=== PATIENT | female | born 1960 | race Caucasian/White ===

== ENCOUNTER → 2020-04-18 11:06 | Outpatient (BNVA) | payer OTHER, SELFPAY | PROVIDERS: PCP Internal Medicine; Referring Provider Internal Medicine; Visit Provider Internal Medicine Gastroenterology | DX: K21.9 Gastro-esophageal reflux disease without esophagitis (principal); K58.1 Irritable bowel syndrome with constipation; K86.3 Pseudocyst of pancreas | CPT/HCPCS: 99212 ==

== ENCOUNTER 2020-04-21 10:34 | Outpatient (REF) | payer OTHER, SELFPAY ==
[2020-04-21 12:33] LABS: MANUAL DIFF FLAG NO
[2020-04-21 12:49] LABS: Basophils Absolute Auto 0.1 X10*3/uL (0.0-0.2); Basophils Percent Auto 0.7 % (0-2); Eosinophils Absolute Auto 0.2 X10*3/uL (0.0-0.4); Eosinophils Percent Auto 2.7 % (0-4); Hematocrit 41.7 % (37-47); Imm Gran Abs Auto 0.02 X10*3/uL (0.00-0.03); Imm Gran Pct Auto 0.3 % (0.0-0.4); Lymphocytes Absolute Auto 2.7 X10*3/uL (1.2-4.9); Lymphocytes Percent Auto 36.8 % (20-40); Mean Corpuscular HGB Conc 33.6 g/dl (31.0-35.0); Mean Corpuscular Volume 95.2 fL (80-98); Mean Platelet Volume 10.4 fL (9.4-12.3); Monocytes Absolute Auto 0.4 X10*3/uL (0.1-1.2); Neutrophils Absolute Auto 3.9 X10*3/uL (2.0-8.3); Neutrophils Percent Auto 53.5 % (45-73); Platelet Count 368 X10*3/uL (160-400); Red Blood Count 4.38 X10*6/uL (4.20-5.50); Red Cell Distribution Width 14.5 % (11.0-16.0); White Blood Count 7.3 X10*3/uL (4.8-10.8)
[2020-04-21 13:27] LABS: Alanine Aminotransferase 17 U/L (0-31); Albumin Level 4.2 g/dL (3.5-5.0); Alkaline Phosphatase 54 U/L (39-117); Anion Gap 13 (12-20); Aspartate Amino Transferase 17 U/L (5-31); Bilirubin Total 0.4 mg/dL (0.0-1.0); Blood Urea Nitrogen 11 mg/dL (9-16); Calcium 9.3 mg/dL (8.4-10.2); Carbon Dioxide 28 mmol/L (22-29); Chloride 103 mmol/L (96-108); Estimated Glomerular Filt Rate > 60; Gamma Glutamyl Transpeptidase 25 U/L (7-33); Glucose Random 101 mg/dL (60-115); Potassium 4.5 mmol/l (3.3-5.1); Sodium 139 mmol/L (135-145); Total Protein 7.6 g/dL (6.5-8.0)
[2020-04-21 13:48] LABS: TSH reflex Free T4 1.31 mIU/mL (0.32-4.0); Vitamin D 25-OH Total 20.7 ng/mL (>30)
== END 2020-04-21 10:35 | disposition home or self-care (01) ==
LOC: HO.LAB 10:34
PROVIDERS: PCP Internal Medicine; Visit Provider Internal Medicine Gastroenterology
DX: K58.9 Irritable bowel syndrome, unspecified (principal)
CPT/HCPCS: 36415; 80053; 82306; 82977; 84443; 85025

== ENCOUNTER 2020-06-06 | Outpatient (REF) | payer OTHER, SELFPAY ==
[2020-06-10 12:07] LABS: FIT Int Ctl YES; FIT1 NEGATIVE (NEGATIVE); FIT2 NEGATIVE (NEGATIVE)
== END 2020-06-06 00:01 | disposition home or self-care (01) ==
LOC: HO.LNP
PROVIDERS: Visit Provider Internal Medicine Gastroenterology
DX: K58.9 Irritable bowel syndrome, unspecified (principal)
CPT/HCPCS: 82274

== ENCOUNTER → 2020-12-29 14:15 | Outpatient (BNVA) | payer OTHER, SELFPAY | PROVIDERS: PCP Internal Medicine; Visit Provider Nurse Practitioner | DX: K21.9 Gastro-esophageal reflux disease without esophagitis (principal); K58.9 Irritable bowel syndrome, unspecified | CPT/HCPCS: Q3014 ==

== ENCOUNTER 2021-04-05 15:04 | Outpatient (REF) | payer OTHER, SELFPAY ==
--- NOTE | ~2021-04-05 | MM_ITS ---
EXAMINATION: MM SCREENING DIGITAL BREAST TOMOSYNTHESIS, BILATERAL CLINICAL INFORMATION: Screening. Asymptomatic. The lifetime risk of breast cancer based on the Tyrer-Cuzick Model is 4%. COMPARISON: Mammography: 06/01/2013 TECHNIQUE: Digital breast tomosynthesis is performed in both the craniocaudal and mediolateral oblique views along with computer-aided detection (CAD). Synthesized 2D images are generated from the tomosynthesis. FINDINGS: There are scattered areas of fibroglandular density (ACR BI-RADS breast composition Category b). There are no significant masses, abnormal calcifications, or other abnormalities. Parenchymal pattern is similar to prior study. The axilla and skin contours are unremarkable. MM/MM tomosynthesis screening BI IMPRESSION: No mammographic evidence of malignancy. ASSESSMENT: BI-RADS 1: Negative RECOMMENDATION: Routine annual mammography screening. This patient's information was entered into a reminder system with a target due date for their next mammogram.
== END 2021-04-05 15:05 | disposition home or self-care (01) ==
LOC: HO.MAMMO 15:04
PROVIDERS: Visit Provider Internal Medicine
DX: Z12.31 Encounter for screening mammogram for malignant neoplasm of breast (principal)
CPT/HCPCS: 77063; 77067

== ENCOUNTER 2021-04-10 12:57 | Outpatient (REF) | payer OTHER, SELFPAY ==
[2021-04-10 15:23] LABS: Syphilis Screen Nonreactive (Nonreactive)
[2021-04-11 01:29] LABS: CT PCR NOT DETECTED (Not Detect.); NG PCR NOT DETECTED (Not Detect.)
[2021-04-11 12:08] LABS: BV Int Neg Control Negative (Negative); BV Int Pos Control Positive (Positive)
[2021-04-12 08:44] LABS: HBc Num1 0.14 S/CO (0.00-0.79); Hepatitis B Core Antibody Nonreactive (Nonreactive); ~HepC Num1 12.92 S/CO (0.00-0.79); ~Hepatitis C Antibody Reactive (Nonreactive)
[2021-04-12 08:48] LABS: HIV AB/AG Nonreactive (Nonreactive); HIV Num 1 0.06 S/CO (0.00-0.99)
== END 2021-04-10 12:58 | disposition home or self-care (01) ==
LOC: HO.LAB 12:57
PROVIDERS: PCP Internal Medicine; Visit Provider Advanced Practice Midwife
DX: Z01.411 Encounter for gynecological examination (general) (routine) with abnormal findings (principal); R10.2 Pelvic and perineal pain; R21 Rash and other nonspecific skin eruption; N95.2 Postmenopausal atrophic vaginitis; Z20.2 Contact with and (suspected) exposure to infections with a predominantly sexual mode of transmission
CPT/HCPCS: 36415; 86704; 86780; 86803; 87389; 87480; 87491; 87510; 87591; 87660

== ENCOUNTER 2021-04-18 14:59 | Outpatient (REF) | payer OTHER, SELFPAY ==
--- NOTE | ~2021-04-18 | US_ITS ---
EXAMINATION: US PELVIS US TRANSVAGINAL CLINICAL INFORMATION: Pelvic pain. COMPARISON: None TECHNIQUE: Ultrasound of the pelvis is performed using both transabdominal and transvaginal transducers along with Doppler. Transvaginal imaging is performed due to inadequate visualization transabdominally. FINDINGS: Uterus: The uterus is anteverted and anteflexed, measures 10.1 x 2.6 x 4.8 cm and includes a fibroid projecting into the right adnexa measuring 5.2 x 3.6 x 3.8 cm (previously 5.3 x 3.4 x 5.7 cm). The double wall endometrial thickness is 0.3 mm. The uterus is smooth in contour and has normal myometrial echogenicity. No visible fibroid. Adnexa: The right ovary was not seen. The left ovary measures 3.5 x 2.7 x 3.4 cm for a volume of 16.8 mL which includes a 2.8 x 2.4 x 2.8 cm benign simple cyst. No free fluid is present. US/US pelvic and transvaginal IMPRESSION: Exophytic 5.2 cm uterine fibroid.
== END 2021-04-18 15:00 | disposition home or self-care (01) ==
LOC: HO.US 14:59
PROVIDERS: PCP Internal Medicine; Visit Provider Advanced Practice Midwife
DX: R10.2 Pelvic and perineal pain (principal); Z71.2 Person consulting for explanation of examination or test findings
CPT/HCPCS: 76830; 76856; Q3014

== ENCOUNTER → 2021-05-03 11:50 | Outpatient (BNVA) | payer OTHER, SELFPAY | PROVIDERS: Visit Provider Advanced Practice Midwife | DX: Z71.2 Person consulting for explanation of examination or test findings (principal); R10.2 Pelvic and perineal pain; D25.9 Leiomyoma of uterus, unspecified; R21 Rash and other nonspecific skin eruption | CPT/HCPCS: Q3014 ==

== ENCOUNTER 2021-06-26 15:06 | Outpatient (REF) | payer OTHER, SELFPAY ==
[2021-07-01 10:02] LABS: HCV Log PCR <1.18 log IU/mL; HepC Viral Load <15 IU/mL
== END 2021-06-26 15:07 | disposition home or self-care (01) ==
LOC: HO.LAB 15:06
PROVIDERS: PCP Internal Medicine; Referring Provider Internal Medicine; Visit Provider Nurse Practitioner
DX: K21.9 Gastro-esophageal reflux disease without esophagitis (principal); K58.9 Irritable bowel syndrome, unspecified; Z86.19 Personal history of other infectious and parasitic diseases
CPT/HCPCS: 36415; 87522; 99212

== ENCOUNTER 2021-07-04 07:15 | Outpatient (REF) | payer OTHER, SELFPAY ==
--- NOTE | ~2021-07-04 | XR_ITS ---
EXAMINATION: XR SHOULDER, LEFT CLINICAL INFORMATION: Pain COMPARISON: Previous x-ray April 2019 TECHNIQUE: Three views of the left shoulder. FINDINGS: Bone alignment is normal. No fracture or dislocation is seen. The glenohumeral joint is normal. There is mild arthritis at the acromioclavicular joint. Soft tissue calcification adjacent to the greater tuberosity appears decreased. XR/XR shoulder LT min 2V IMPRESSION: Mild arthritis at the acromioclavicular joint.
== END 2021-07-04 07:16 | disposition home or self-care (01) ==
LOC: HO.HOSX 07:15
PROVIDERS: Visit Provider Physician Assistant
DX: M75.102 Unspecified rotator cuff tear or rupture of left shoulder, not specified as traumatic (principal)
CPT/HCPCS: 73030; 99212

== ENCOUNTER → 2021-12-26 11:44 | Outpatient (BNVA) | payer OTHER, SELFPAY | PROVIDERS: PCP Internal Medicine; Referring Provider Internal Medicine; Visit Provider Nurse Practitioner | DX: K21.9 Gastro-esophageal reflux disease without esophagitis (principal); K59.00 Constipation, unspecified; Z86.19 Personal history of other infectious and parasitic diseases | CPT/HCPCS: 99212 ==

== ENCOUNTER → 2022-01-24 12:12 | Outpatient (BNVA) | payer OTHER, SELFPAY | PROVIDERS: PCP Internal Medicine; Referring Provider Internal Medicine; Visit Provider Nurse Practitioner | DX: Z01.818 Encounter for other preprocedural examination (principal); K59.00 Constipation, unspecified; K21.9 Gastro-esophageal reflux disease without esophagitis; K58.9 Irritable bowel syndrome, unspecified; M65.30 Trigger finger, unspecified finger; E11.9 Type 2 diabetes mellitus without complications | CPT/HCPCS: 99212 ==

== ENCOUNTER 2022-01-25 07:54 | Outpatient (REF) | payer OTHER, SELFPAY ==
[2022-01-25 08:15] LABS: MANUAL DIFF FLAG NO
[2022-01-25 08:23] LABS: Basophils Absolute Auto 0.1 X10*3/uL (0.0-0.2); Basophils Percent Auto 0.7 % (0-2); Eosinophils Absolute Auto 0.3 X10*3/uL (0.0-0.4); Eosinophils Percent Auto 2.8 % (0-4); Hematocrit 39.3 % (37.0-47.0); Hemoglobin 13.5 g/dl (12.0-16.0); Imm Gran Abs Auto 0.02 X10*3/uL (0.00-0.03); Imm Gran Pct Auto 0.2 % (0.0-0.4); Lymphocytes Absolute Auto 2.9 X10*3/uL (1.2-4.9); Lymphocytes Percent Auto 31.5 % (20-40); Mean Corpuscular HGB Conc 34.4 g/dl (31.0-35.0); Mean Corpuscular Volume 93.1 fL (80.0-98.0); Mean Platelet Volume 9.6 fL (9.4-12.3); Monocytes Absolute Auto 0.6 X10*3/uL (0.1-1.2); Monocytes Percent Auto 6.1 % (2-11); Neutrophils Absolute Auto 5.4 x10*3/uL (2.0-8.3); Neutrophils Percent Auto 58.7 % (45-73); Platelet Count 350 X10*3/uL (160-400); Red Blood Count 4.22 X10*6/uL (4.20-5.50); Red Cell Distribution Width 14.9 % (11.0-16.0); White Blood Count 9.2 X10*3/uL (4.8-10.8)
[2022-01-25 08:33] LABS: Estimated Average Glucose 117 mg/dL; Hemoglobin A1c % 5.7 %
[2022-01-25 08:52] LABS: Alanine Aminotransferase 16 U/L (0-31); Albumin Level 4.1 g/dL (3.5-5.0); Alkaline Phosphatase 52 U/L (39-117); Anion Gap 13 (12-20); Aspartate Amino Transferase 15 U/L (5-31); Bilirubin Total 0.5 mg/dL (0.0-1.0); Blood Urea Nitrogen 13 mg/dL (9-16); Calcium 9.6 mg/dL (8.4-10.2); Carbon Dioxide 27 mmol/L (22-29); Chloride 103 mmol/L (96-108); Estimated Glomerular Filt Rate > 60; Glucose Random 95 mg/dL (60-115); Potassium 4.3 mmol/L (3.3-5.1); Sodium 139 mmol/L (135-145); Total Protein 7.7 g/dL (6.5-8.0)
[2022-01-26 17:31] LABS: HCV Log PCR <1.18 NOT DETECTED Log IU/mL (NOT DETECTED); HepC Viral Load <15 NOT DETECTED IU/mL (NOT DETECTED)
== END 2022-01-25 07:55 | disposition home or self-care (01) ==
LOC: HO.LAB 07:54
PROVIDERS: PCP Internal Medicine; Visit Provider Nurse Practitioner
DX: E11.9 Type 2 diabetes mellitus without complications (principal); K21.9 Gastro-esophageal reflux disease without esophagitis; K59.00 Constipation, unspecified; Z86.19 Personal history of other infectious and parasitic diseases
CPT/HCPCS: 36415; 80053; 83036; 85025; 87522

== ENCOUNTER 2022-04-05 10:58 | Day surgery (SDC) | payer OTHER, SELFPAY ==
--- NOTE | 2022-04-04 09:18 | HO.ANESPROP2 ---
Documented by User: Nancy Robison NP 04/04/22 09:20 HPI - Anesthesia Eval Consult details Narrative: 61yo F for Colonoscopy PMFSH Active Problems Active Problems: All Active Problems (Updated 01/24/22 @ 13:00 by ANKITA Hernandez) Preop examination (Acute) Diabetes mellitus (Acute) Trigger finger (Acute) Constipation (Acute) Painful arc syndrome of left shoulder (Acute) Hx of hepatitis C (Acute) Uterine fibroid (Acute) Encounter to discuss test results (Acute) Pseudocyst of pancreas (Acute) IBS (irritable colon syndrome) (Acute) GERD (gastroesophageal reflux disease) (Acute) Past Medical History Medical History Diabetes mellitus GERD (gastroesophageal reflux disease) Hx of hepatitis C IBS (irritable colon syndrome) Pseudocyst of pancreas Uterine fibroid Family History Family History Father No problems noted. Mother No problems noted. Surgical History Surgical History History of esophagogastroduodenoscopy (EGD) Hx of colonoscopy Social History Social History Household Members: Significant Other Housing: Homeless Housing Other:: recently seperated from [employer] and was kicked out of apartment Alcohol intake: current Alcohol intake frequency: does not drink Patient Tobacco Use Status: Never used Tobacco Use of substances other than those prescribed or required for medical reasons: No Are you DNR?: No Advance Directives: No Advance Directives Information Provided: Yes Current occupational status: disabled Current occupation: Rt handed Meds Allergies Allergy/AdvReac Type Severity Reaction Status Date / Time blue dye Allergy Intermediate Hives Verified 04/05/22 11:20 metformin [Janumet XR] Allergy Unknown hives Verified 04/05/22 11:20 penicillin V Allergy Unknown Unknown Verified 04/05/22 11:20 sitagliptin [Janumet XR] Allergy Unknown hives Verified 04/05/22 11:20 Home Medications Medication Instructions Recorded Confirmed Last Taken Type ezetimibe 10 mg tablet 10 mg PO DAILY 04/18/20 04/05/22 Unknown History metformin 500 mg tablet 500 mg PO BID 11/04/05/22 04/03/22 22:30 History sitagliptin 100 mg tablet (Januvia) 100 mg PO DAILY 04/18/20 04/05/22 04/04/22 07:30 History cholecalciferol (vitamin D3) 50 50 mcg PO DAILY 12/26/21 04/05/22 Unknown History mcg (2,000 unit) tablet (Vitamin D3) Exam Exam Date and Time: April 04, [id number] Pertinent Lab Results Pertinent Lab Results: Laboratory Tests 01/25/22 01/25/22 08:06 08:06 WBC 9.2 Hgb 13.5 Hct 39.3 Plt Count 350 Sodium 139 Potassium 4.3 Chloride 103 Carbon Dioxide 27 BUN 13 Creatinine 0.66 Assessment and Plan Assessment Anesthesia Assessment: Chart Reviewed Documented by User: Alina Howard MD 04/05/22 12:05 [facility] Past Medical History Medical History Diabetes mellitus GERD (gastroesophageal reflux disease) Hx of hepatitis C IBS (irritable colon syndrome) Pseudocyst of pancreas Uterine fibroid Family History Family History Father No problems noted. Mother No problems noted. Surgical History Surgical History History of esophagogastroduodenoscopy (EGD) Hx of colonoscopy History of Problems with Anesthesia: No Social History Social History Household Members: Significant Other Housing: Homeless Housing Other:: recently seperated from [employer] and was kicked out of apartment Alcohol intake: current Alcohol intake frequency: does not drink Patient Tobacco Use Status: Never used Tobacco Use of substances other than those prescribed or required for medical reasons: No Are you DNR?: No Advance Directives: No Advance Directives Information Provided: Yes Current occupational status: disabled Current occupation: Rt handed Meds Allergies Allergy/AdvReac Type Severity Reaction Status Date / Time blue dye Allergy Intermediate Hives Verified 04/05/22 11:20 metformin [Janumet XR] Allergy Unknown hives Verified 04/05/22 11:20 penicillin V Allergy Unknown Unknown Verified 04/05/22 11:20 sitagliptin [Janumet XR] Allergy Unknown hives Verified 04/05/22 11:20 Home Medications Medication Instructions Recorded Confirmed Last Taken Type ezetimibe 10 mg tablet 10 mg PO DAILY 04/18/20 04/05/22 Unknown History metformin 500 mg tablet 500 mg PO BID 04/18/20 04/05/22 04/03/22 22:30 History sitagliptin 100 mg tablet (Januvia) 100 mg PO DAILY 04/18/20 04/05/22 04/04/22 07:30 History cholecalciferol (vitamin D3) 50 50 mcg PO DAILY 12/26/21 04/05/22 Unknown History mcg (2,000 unit) tablet (Vitamin D3) Assessment and Plan Assessment Anesthesia Assessment: Anesthesia Plan Discussed Final Anesthetic Review History of Problems with Anesthesia: No NPO: Yes ASA Class: II Final Preanesthetic Review: Meds/Allgs Chart Reviewed, Consent Obtained/Reviewed and Anes Risks/Benef Reviewed Patient Risk: Low Procedure Risk: Intermediate Anesthetic Plan Anesthetic Plan: MAC: Disposition: Standard PACU
[2022-04-05 11:03] VITALS: BMI 23.8
[2022-04-05 11:12] VITALS: BP 173/90; PULSE 96; RESP 16; TEMP 37.2; O2SAT 96
[2022-04-05 11:24] LABS: Glucose, Whole Blood 145 mg/dL (60-115)
[2022-04-05] MEDS: Lactated Ringers 1,000 ML 100 ML IVCONT (11:28)
[2022-04-05 11:45] VITALS: BP 147/85
--- NOTE | 2022-04-05 12:10 | MHC.SHP ---
Pre-Procedural Eval Section A Date of Service: 04/05/22 Section B Chief Complaint: Constipation, CRC screening Details of Present Illness: 61y.o F with hx of HCV s/p treatment 2010, who is here for a screening colonscopy. Last colo 2010 without polyps. Present Medications: see Short Stay Collaborative assessment Medical History: Significant History (Hx of HCV, T2DM, IBS, GERD ) Allergies: Allergies Allergy/AdvReac Type Severity Reaction Status Date / Time blue dye Allergy Intermediate Hives Verified 04/05/22 11:20 metformin [Janumet XR] Allergy Unknown hives Verified 04/05/22 11:20 penicillin V Allergy Unknown Unknown Verified 04/05/22 11:20 sitagliptin [Janumet XR] Allergy Unknown hives Verified 04/05/22 11:20 Review of Systems Review of Systems Comment: 10 point ROS negative Exam Exam Comment: Gen appear: No acute distress, well nourished HEENT: no icterus Chest: No overt resp distress Abd: soft, nontender, nondistended Psych: Stable affect, answering questions appropriately Neuro: A/Ox3 noted to move all extremities spontaneously Ext: no peripheral edema Plan Diagnosis/Plan: Unchanged I have reviewed the history and physical and performed a pertinent physical examination on my patient. No changes have occurred unless specified.
--- NOTE | 2022-04-05 12:44 | P.OP_ITS ---
Operative Note Operative Note Date of Service: 04/05/22 Narrative: Procedure: Colonoscopy Indication: Screening Endoscopist: Mila Hoffmann MD Anesthesia Provider: Dr David Alberts Anesthesia type: MAC Instrument: Olympus [id number]-[id number] Consent: Indication, risks vs benefits, and alternatives were discussed with the patient who gave written informed consent to proceed. EKG, pulse, pulse oximetry and blood pressure were monitored throughout the procedure. Please see anesthesia flowsheet. Procedure: The patient was brought to the procedure room and placed in the left lateral decubitus position. IV medications were administered by the anesthesia provider in attendance. A digital rectal exam was performed which was normal. The colonoscope was then inserted through the anus and advanced through the colon to the cecum at 70 cm. Mucosa was carefully examined under high definition white light as the instrument was slowly withdrawn in a retrograde panoramic fashion. Retroflexion was performed in rectum. The procedure was not difficult. There were no immediate obvious complications. The quality of the prep was BBPS: 3+2+3 = excellent Withdrawal time 12 minutes. Limitations: No limitations. Findings: Mucosa: Normal to cecum. Protruding lesions: * Large internal hemorrhoids without stigmata of recent bleeding. Excavated lesions: * Mild diverticulosis of sigmoid colon. Impression: 1. Normal colon mucosa 2. Sigmoid diverticulosis 3. Internal hemorrhoids Recommendations: - Repeat colonoscopy in 10 years for colorectal cancer screening
[2022-04-05 12:45] VITALS: BP 106/62; PULSE 76; RESP 16; TEMP 36.6; O2SAT 95
[2022-04-05 13:00] VITALS: BP 115/62; PULSE 72; RESP 16; O2SAT 95
[2022-04-05 13:15] VITALS: BP 126/76; PULSE 68; RESP 16; TEMP 37.1; O2SAT 96
[2022-04-05 13:30] VITALS: BP 121/75; PULSE 67; RESP 16; TEMP 37.1; O2SAT 96
== END 2022-04-05 14:16 | disposition home or self-care (01) ==
PROVIDERS: PCP Internal Medicine; Visit Provider Internal Medicine
PROC: 0DJD8ZZ Inspection of Lower Intestinal Tract, Via Natural or Artificial Opening Endoscopic (ICD-10-PCS; CPT 45378; principal; 2022-04-05 12:00)
DX: Z12.11 Encounter for screening for malignant neoplasm of colon (principal); K57.30 Diverticulosis of large intestine without perforation or abscess without bleeding; K64.8 Other hemorrhoids; K58.9 Irritable bowel syndrome, unspecified; K59.00 Constipation, unspecified; K21.9 Gastro-esophageal reflux disease without esophagitis; E11.9 Type 2 diabetes mellitus without complications; Z86.19 Personal history of other infectious and parasitic diseases; Z79.84 Long term (current) use of oral hypoglycemic drugs; Z79.899 Other long term (current) drug therapy; Z88.0 Allergy status to penicillin; Z88.8 Allergy status to other drugs, medicaments and biological substances
CPT/HCPCS: G0121; 82947

== ENCOUNTER → 2022-04-19 11:46 | Outpatient (BNVA) | payer OTHER, SELFPAY | PROVIDERS: PCP Internal Medicine; Visit Provider Nurse Practitioner | DX: K21.9 Gastro-esophageal reflux disease without esophagitis (principal); K58.9 Irritable bowel syndrome, unspecified; K59.00 Constipation, unspecified | CPT/HCPCS: 99212 ==

== ENCOUNTER 2022-07-19 12:42 | Outpatient (REF) | payer OTHER, SELFPAY ==
[2022-07-20 13:15] LABS: BV Int Neg Control Negative (Negative); BV Int Pos Control Positive (Positive)
== END 2022-07-19 12:43 | disposition home or self-care (01) ==
LOC: HO.LAB 12:42
PROVIDERS: Visit Provider Advanced Practice Midwife
DX: N89.8 Other specified noninflammatory disorders of vagina (principal)
CPT/HCPCS: 87480; 87510; 87660

== ENCOUNTER 2022-07-19 13:45 | Outpatient (REF) | payer OTHER, SELFPAY ==
[2022-07-24 05:24] LABS: HPV mRNA E6/E7 rflx Not Detected (Not Detected)
== END 2022-07-19 13:46 | disposition home or self-care (01) ==
LOC: HO.LNP 13:45
PROVIDERS: Visit Provider Advanced Practice Midwife
DX: Z01.419 Encounter for gynecological examination (general) (routine) without abnormal findings (principal); Z11.51 Encounter for screening for human papillomavirus (HPV)
CPT/HCPCS: 87624; 88142

== ENCOUNTER 2022-12-27 14:23 | Outpatient (AMB) | payer OTHER, SELFPAY ==
[2022-12-27 14:29] VITALS: BP 126/69; PULSE 62; BMI 24.2
--- NOTE | 2022-12-27 14:29 | MHC.OFFVIS ---
Intake Vital Signs 12/27/22 14:29 Height 5 ft 2 in Weight 132 lb 4.438 oz BMI 24.2 BP 126/69 Blood Pressure Location Lt brachial Position Sitting Pulse 62 Intake Visit Reasons: 6 month follow up Intake Note: Patient presents to in office visit today in 6 months follow up. CC: Patient reports that she always has constipation. Patient states she has been suffering from arthritis pain from her waist down, especially her lower extremities. Game [employer] Required: No Accompanied by: Self / Same As Patient Allergies blue dye Allergy (Intermediate, Verified 12/27/22 14:40) Hives metformin [Janumet XR] Allergy (Unknown, Verified 12/27/22 14:40) hives sitagliptin [Janumet XR] Allergy (Unknown, Verified 12/27/22 14:40) hives HPI 6 month follow up HPI Details Assessment & Plan (1) GERD (gastroesophageal reflux disease): ?Code(s): K21.9 - Gastro-esophageal reflux disease without esophagitis ?Plan: She tolerated the procedure well.? I explained the results and she does not need to repeat her colonoscopy for 10 years.? She continues on her omeprazole with good control of her heartburn.? Her bowels have returned to normal after the procedure without any problems.? She continues on her magnesium therapy and that has helped her quite well with her constipation but she has dismayed that has not helped her sleep.? He because of this and because in the past she did well with melatonin therapy we discussed this as a possible [id number] trial to help her with this.? I also encouraged her to work with her primary care provider in terms of her insomnia. Return office visit in 6 months.? (2) IBS (irritable colon syndrome): ?Code(s): K58.9 - Irritable bowel syndrome without diarrhea (3) Constipation: ?Code(s): K59.00 - Constipation, unspecified TODAY'S VISIT She is having more constipation despite taking her magnesium. In the past she used senna with good success, so I will send this to her pharmacy. Her joints are hurting her more, unsure if it is r/t the current very wet and stormy weather. This has been over the past 3-4 months. She will be having surgery for her right hand trigger finger. But her pain in her jionts is body wide. She continues to do well with her GERD and her omeprazole. She will be having a test for her lower leg weakness that sounds like it may be an EMG through her PCP. ROV 8 weeks or earlier. [facility] Medical History Diabetes mellitus GERD (gastroesophageal reflux disease) Hx of hepatitis C IBS (irritable colon syndrome) Pseudocyst of pancreas Uterine fibroid Surgical History History of esophagogastroduodenoscopy (EGD) Hx of colonoscopy Family History Father No problems noted. Mother No problems noted. Social History Household Members: Significant Other Housing: Homeless Housing Other:: recently seperated from [employer] and was kicked out of apartment Alcohol intake: current Alcohol intake frequency: does not drink Patient Tobacco Use Status: Never used Tobacco Current occupational status: disabled Current occupation: Rt handed Review of Systems Const Denies fatigue, Denies fever(s), Denies night sweats, Denies poor appetite and Denies weight loss ENT Reports Normal hearing present, Denies dental pain, Denies dysphagia, Denies hearing loss, Denies mouth pain, Denies odynophagia, Denies throat swelling, Denies tongue swelling and Reports other (Dentition adequate) Card Reports no additional complaints Resp Reports no additional complaints GI Denies abdominal pain, Denies melena, Denies bloating, Denies hematochezia, Reports constipation, Denies GI cramping, Denies dysphagia, Denies excessive flatus, Denies early satiety, Reports heartburn, Denies diarrhea, Denies nausea, Denies odynophagia, Denies vomiting and Denies hematemesis Musc Reports myalgias, Reports arthralgias, Reports joint swelling, Reports muscle cramps and Reports muscle weakness Skin/Breast Denies pruritus, Denies lesions, Denies rash and Denies jaundice Neuro Reports Normal hearing present and Denies Abnormal speech present Endo Denies fatigue Aller/Immun Denies throat swelling and Denies tongue swelling Physical Exam Vital Signs: Last Vital Signs Pulse 62 12/27/22 14:29 BP 126/69 12/27/22 14:29 BMI result Body Mass Index 24.2 Const General: cooperative, no acute distress, well developed and well groomed Nutritional Appearance: average body habitus and well nourished Orientation/consciousness: oriented to person, oriented to place and oriented to time Limitations: No language barrier HEENT Head: Yes normocephalic and Yes atraumatic Eyes General: appearance normal, both eyes and all related structures Pupils: Equal, round and reactive pupils present Neck Neck: Yes normal visual inspection and Yes no lymphadenopathy Thyroid: Thyroid normal Resp Effort & Inspection: normal respiratory effort and able to speak in complete sentences Auscultation: clear to auscultation bilaterally Cardio Rate: regular rate Rhythm: regular rhythm Heart sounds: Normal, physiologic split S2 sound present Peripheral pulses: radial pulses present and posterior tibial pulses present GI Inspection: No distended and No Abdominal panniculus present Palpation (GI): Soft to palpation, nontender, no guarding, not rigid and No hepatosplenomegaly present Percussion: Yes normal to percussion Auscultation: normal bowel sounds Rectal Exam - Female: deferred Skin General skin exam: no rashes or lesions noted, turgor normal, skin not dry, no jaundice, No spider nevi and no striae Rashes: no rashes Nails: normal Neuro General: oriented to person, oriented to place and oriented to time Cranial nerves: Yes Equal, round and reactive pupils present and Yes Normal hearing present Speech: No Abnormal speech present Extrem General: Yes normal to inspection, No clubbing, No cyanosis and No edema Psych Appearance: grossly normal and well kempt Mental Status: mental status grossly normal Speech and movement: Normal speech and movement present Affect: normal affect Attitude: cooperative Thought process: Normal thought process present and not confabulating Thought content: Normal thought content present Insight: Limited insight present (Psych) Judgement: Limited judgement present (Psych) Assessment & Plan Assessment & Plan (1) GERD (gastroesophageal reflux disease): Code(s): K21.9 - Gastro-esophageal reflux disease without esophagitis Plan: She is having more constipation despite taking her magnesium. In the past she used senna with good success, so I will send this to her pharmacy. Her joints are hurting her more, unsure if it is r/t the current very wet and stormy weather. This has been over the past 3-4 months. She will be having surgery for her right hand trigger finger. But her pain in her jionts is body wide. She continues to do well with her GERD and her omeprazole. She will be having a test for her lower leg weakness that sounds like it may be an EMG through her PCP. ROV 8 weeks or earlier. (2) IBS (irritable colon syndrome): Code(s): K58.9 - Irritable bowel syndrome without diarrhea (3) Constipation: Code(s): K59.00 - Constipation, unspecified Medications: New sennosides (Senna Laxative) 8.6 mg PO BEDTIME 60 tabs 6RF K59.00 - Constipation, unspecified Refilled omeprazole 40 mg PO DAILY 30 days 30 caps 6RF Coding Level of Care Code Est Pt Level 3 (09683) Diagnoses GERD (gastroesophageal reflux disease) K21.9 IBS (irritable colon syndrome) K58.9 Constipation K59.00
== END 2022-12-27 16:13 | disposition home or self-care (01) ==
PROVIDERS: Visit Provider Nurse Practitioner
DX: K21.9 Gastro-esophageal reflux disease without esophagitis (principal); K58.9 Irritable bowel syndrome, unspecified; K59.00 Constipation, unspecified
CPT/HCPCS: 99213

== ENCOUNTER → 2022-12-27 14:23 | Outpatient (BNVA) | payer OTHER, SELFPAY | PROVIDERS: Visit Provider Nurse Practitioner | DX: K59.00 Constipation, unspecified (principal); K58.9 Irritable bowel syndrome, unspecified; K21.9 Gastro-esophageal reflux disease without esophagitis | CPT/HCPCS: 99212 ==

== ENCOUNTER 2022-12-31 12:38 | Outpatient (REF) | payer OTHER, SELFPAY ==
--- NOTE | ~2022-12-31 | US_ITS ---
EXAMINATION: ARTERIAL DUPLEX BILATERAL LEGS CLINICAL INFORMATION: Bilateral leg pain COMPARISON: None TECHNIQUE: Duplex Doppler of the bilateral lower extremity arterial systems was performed. FINDINGS: RIGHT: Common femoral: PSV 116 cm/s. Triphasic waveform. Deep femoral: PSV 103 cm/s. Triphasic waveform. Proximal superficial femoral: PSV 75 cm/s. Triphasic waveform. Mid superficial femoral: PSV 103 cm/s. Triphasic waveform. Distal superficial femoral: PSV 91 cm/s. Triphasic waveform. Popliteal: PSV 80 cm/s. Triphasic waveform. Posterior tibial: PSV 82 cm/s. Triphasic waveform. Peroneal: PSV 50 cm/s. Triphasic waveform. LEFT: Common femoral: PSV 106 cm/s. Triphasic waveform. Deep femoral: PSV 72 cm/s. Triphasic waveform. Proximal superficial femoral: PSV 84 cm/s. Triphasic waveform. Mid superficial femoral: PSV 102 cm/s. Triphasic waveform. Distal superficial femoral: PSV 82 cm/s. Triphasic waveform. Popliteal: PSV 79 cm/s. Triphasic waveform. Posterior tibial: PSV 72 cm/s. Triphasic waveform. Peroneal: PSV 45 cm/s. Triphasic waveform. US/US arterial duplex LE BI IMPRESSION: No evidence of hemodynamically significant peripheral arterial disease.
--- NOTE | ~2022-12-31 | US_ITS ---
EXAMINATION: US VENOUS REFLUX/INSUFFICIENCY CLINICAL INFORMATION: The patient is a 62-year-old woman with lower extremity pain and swelling. COMPARISON: None. TECHNIQUE: Bilateral lower extremity and venous insufficiency ultrasound was performed with velocity measurements. Color flow Doppler imaging was performed. FINDINGS: RIGHT SIDE: GREATER SAPHENOUS VEIN: The right saphenofemoral diameter is 0.9 cm. There is no reflux. The right proximal thigh diameter is 0.6 cm. There is no reflux. The right mid thigh diameter is 0.3 cm. There is no reflux. The right above-knee diameter is 0.4 cm. There is no reflux. The right at-knee diameter is 0.3 cm. There is no reflux. The right below-knee diameter is 0.3 cm. There is no reflux. The right mid calf diameter is 0.3 cm. There is no reflux. The right ankle diameter is 0.3 cm. There is no reflux. LATERAL ACCESSORY GREATER SAPHENOUS VEIN: The right saphenofemoral junction diameter is 0.4 cm. There is no reflux. The right mid thigh diameter is 0.1 cm. There is no reflux. LESSER SAPHENOUS VEIN: The right saphenopopliteal junction diameter is 0.3 cm. There is no reflux. The right mid calf diameter is 0.1 cm. There is no reflux. The right distal calf diameter is 0.2 cm. There is no reflux. LEFT SIDE: GREATER SAPHENOUS VEIN: The left saphenofemoral junction diameter is 0.9 cm. There is no reflux. The left proximal thigh diameter is 0.4 cm. There is no reflux. The left mid thigh diameter is 0.5 cm. There is no reflux. The left above-knee diameter is 0.4 cm. There is no reflux. The left at-knee diameter is 0.3 cm. There is no reflux. The left below-knee diameter is 0.4 cm. There is no reflux. The left mid calf diameter is 0.3 cm. There is no reflux. The left ankle diameter is 0.2 cm. There is no reflux. LATERAL ACCESSORY GREATER SAPHENOUS VEIN: The left saphenofemoral junction diameter is 0.5 cm. There is no reflux The left mid thigh diameter is 0.2 cm. There is no reflux. LESSER SAPHENOUS VEIN: The left saphenopopliteal junction diameter is 0.2 cm. There is no reflux. The left mid calf diameter is 0.1 cm. There is no reflux. The left distal calf diameter is 0.3 cm. There is no reflux. BILATERAL DEEP VENOUS SYSTEMS: There is no deep venous thrombosis or reflux on the right. There is no deep venous thrombosis or reflux on the left. US/US venous duplex LE BI IMPRESSION: No hemodynamically significant reflux is seen of the bilateral greater or lesser saphenous veins.
== END 2022-12-31 12:39 | disposition home or self-care (01) ==
LOC: HO.US 12:38
PROVIDERS: Visit Provider Internal Medicine
DX: M79.605 Pain in left leg (principal); M79.604 Pain in right leg
CPT/HCPCS: 93925; 93970

== ENCOUNTER 2023-02-12 09:36 | Outpatient (REF) | payer OTHER, SELFPAY ==
[2023-02-12 11:18] LABS: MANUAL DIFF FLAG NO
[2023-02-12 11:32] LABS: Estimated Average Glucose 105 mg/dL; Hemoglobin A1c % 5.3 % (<6.0)
[2023-02-12 11:41] LABS: Basophils Absolute Auto 0.1 X10*3/uL (0.0-0.2); Eosinophils Absolute Auto 0.3 X10*3/uL (0.0-0.4); Eosinophils Percent Auto 4.8 % (0-4); Hematocrit 42.1 % (37.0-47.0); Hemoglobin 14.1 g/dl (12.0-16.0); Imm Gran Abs Auto 0.02 X10*3/uL (0.00-0.03); Imm Gran Pct Auto 0.3 % (0.0-0.4); Lymphocytes Absolute Auto 2.3 X10*3/uL (1.2-4.9); Lymphocytes Percent Auto 33.9 % (20-40); Mean Corpuscular HGB Conc 33.5 g/dl (31.0-35.0); Mean Corpuscular Hemoglobin 31.8 pg (27.0-33.0); Mean Corpuscular Volume 94.8 fL (80.0-98.0); Mean Platelet Volume 10.7 fL (9.4-12.3); Monocytes Absolute Auto 0.4 X10*3/uL (0.1-1.2); Monocytes Percent Auto 6.2 % (2-11); Neutrophils Absolute Auto 3.7 x10*3/uL (2.0-8.3); Neutrophils Percent Auto 53.8 % (45-73); Platelet Count 347 X10*3/uL (160-400); Red Blood Count 4.44 X10*6/uL (4.20-5.50); White Blood Count 6.8 X10*3/uL (4.8-10.8)
[2023-02-12 11:46] LABS: Anion Gap 13 (12-20); Blood Urea Nitrogen 11 mg/dL (9-16); Calcium 9.7 mg/dL (8.4-10.2); Carbon Dioxide 22 mmol/L (22-29); Chloride 108 mmol/L (96-108); Cholesterol 287 mg/dL (<200); Estimated Glomerular Filt Rate > 60; Glucose Random 107 mg/dL (60-115); HDL Cholesterol 53 mg/dL (>40); LDL Cholesterol Calculated 190 mg/dL (<100); Potassium 4.1 mmol/L (3.3-5.1); Sodium 139 mmol/L (135-145); Triglycerides 223 mg/dL (<150)
== END 2023-02-12 09:37 | disposition home or self-care (01) ==
LOC: HO.HHCL 09:36
PROVIDERS: Visit Provider Internal Medicine
DX: R73.03 Prediabetes (principal); I10 Essential (primary) hypertension; E78.5 Hyperlipidemia, unspecified; E11.9 Type 2 diabetes mellitus without complications
CPT/HCPCS: 36415; 80048; 80061; 83036; 85025

== ENCOUNTER 2023-02-15 11:23 | Outpatient (REF) | payer OTHER, SELFPAY ==
[2023-02-15 15:17] LABS: Appearance Urine Turbid; Color Urine Yellow; Glucose Urine UA Negative (Negative); Leukocyte Esterase Urine Moderate (2+) (Negative); Nitrite Urine Negative (Negative); PH 5.5 (5.0-9.0); UMIC TRIGGER UACC YES; Urine Blood Moderate (2+) (Negative); Urine Ketones Negative (Negative); Urine Protein Negative (Neg-Trace)
[2023-02-15 15:20] LABS: Bacteria Urine None Seen (None Seen); Hyaline Casts Urine 0-2 /LPF (0-2); UACC Culture Trigger YES
[2023-02-15 15:46] LABS: Alanine Aminotransferase 9 U/L (0-31); Albumin Level 4.1 g/dL (3.5-5.0); Alkaline Phosphatase 57 U/L (39-117); Anion Gap 12 (12-20); Aspartate Amino Transferase 13 U/L (5-31); Bilirubin Total 0.3 mg/dL (0.0-1.0); Blood Urea Nitrogen 11 mg/dL (9-16); Calcium 9.4 mg/dL (8.4-10.2); Carbon Dioxide 24 mmol/L (22-29); Chloride 104 mmol/L (96-108); Estimated Glomerular Filt Rate > 60; Glucose Random 99 mg/dL (60-115); Potassium 4.1 mmol/L (3.3-5.1); Sodium 136 mmol/L (135-145); Total Protein 7.7 g/dL (6.5-8.0)
== END 2023-02-15 11:24 | disposition home or self-care (01) ==
LOC: HO.HHCL 11:23
PROVIDERS: Visit Provider Registered Nurse
DX: R39.89 Other symptoms and signs involving the genitourinary system (principal)
CPT/HCPCS: 36415; 80053; 81001; 87086

== ENCOUNTER 2023-02-21 13:45 | Outpatient (AMB) | payer OTHER, SELFPAY ==
--- NOTE | 2023-02-21 13:52 | A.OFFVIS_ITS ---
Intake Vital Signs 02/21/23 13:55 Height 5 ft 2 in Weight 130 lb BMI 23.8 BP 123/72 Blood Pressure Location Lt brachial Position Sitting Pulse 88 Intake Visit Reasons: Follow up constipation Intake Note: Patient follow up for constipation. Patient cc: constipation on and off, denies any other GI issues or concern. 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 In the past she used senna with good success, so I will send this to her pharmacy. Her joints ar e hurting her more, unsure if it is r/t the current very wet and stormy weather. This has been over the past 3-4 months. She will be having surgery for her right hand trigger finger. But her pain in her jionts is body wide. She continues to do well with her GERD and her omeprazole. She will be having a test for her lower leg weakness that sounds like it may be an EMG through her PCP. ROV 8 weeks or earlier. (2) IBS (irritable colon syndrome): Code(s): K58.9 - Irritable bowel syndrome without diarrhea (3) Constipation: Code(s): K59.00 - Constipation, unspecified Medications: New sennosides (Senna Laxative) 8.6 mg PO BEDTIME 60 tabs 6RF K59.00 - Constipat ion, unspecified Refilled omeprazole 40 mg PO DAILY 30 days 30 caps 6RF TODAY'S VISIT She is doing better with the senna and the CIC, but would like to go up to 3 tabs a day on the senna. I tell her this is okay. She had her trigger finger surgery and is recovering well, will get the bandage off today. She has not been taking the o2o because she has not been having GERD or dyspepsia. ROV 6 mos. PFSH Medical History (Updated 02/21/23 @ 13:53 by Lashae Jacobsen) Uterine fibroid Hx of hepatitis C Diabetes mellitus Pseudocyst of pancreas IBS (irritable colon syndrome) GERD (gastroesophageal reflux disease) Surgical History (Updated 02/21/23 @ 13:53 by Lashae Jacobsen) History of trigger finger History of esophagogastroduodenoscopy (EGD) Hx of colonoscopy Family History Father No problems noted. Mother No problems noted. Social History Household Members: Significant Other Housing: Homeless Housing Other:: recently seperated from [employer] and was kicked out of apartment Alcohol intake: current Alcohol intake frequency: does not drink Patient Tobacco Use Status: Never used Tobacco Current occupational status: disabled Current occupation: Rt handed [employer] Systems Const Denies fatigue, Denies fever(s), Denies night sweats, Denies poor appetite and Denies weight loss ENT Reports Normal hearing present, Denies dental pain, Denies dysphagia, Denies hearing loss, Denies mouth pain, Denies odynophagia, Denies throat swelling, Denies tongue swelling and Reports other (Dentition adequate) Card Reports no additional complaints Resp Reports no additional complaints GI Denies abdominal pain, Denies melena, Denies bloating, Denies hematochezia, Reports constipation, Denies GI cramping, Denies dysphagia, Denies excessive flatus, Denies early satiety, Denies heartburn, Denies diarrhea, Denies nausea, Denies odynophagia, Denies vomiting and Denies hematemesis Skin/Breast Denies pruritus, Denies lesions, Denies rash and Denies jaundice Neuro Reports Normal hearing present and Denies Abnormal speech present Endo Denies fatigue Aller/Immun Denies throat swelling and Denies tongue swelling Physical Exam Vital Signs: Last Vital Signs Pulse 88 02/21/23 13:55 BP 123/72 02/21/23 13:55 BMI result Body Mass Index 23.8 Const General: cooperative, no acute distress, well developed and well groomed Nutritional Appearance: average body habitus and well nourished Orientation/consciousness: oriented to person, oriented to place and oriented to time Limitations: No language barrier HEENT Head: Yes normocephalic and Yes atraumatic Eyes General: appearance normal, both eyes and all related structures Pupils: Equal, round and reactive pupils present Neck Neck: Yes normal visual inspection and Yes no lymphadenopathy Thyroid: Thyroid normal Resp Effort & Inspection: normal respiratory effort and able to speak in complete sentences Auscultation: clear to auscultation bilaterally Cardio Rate: regular rate Rhythm: regular rhythm Heart sounds: Normal, physiologic split S2 sound present Peripheral pulses: radial pulses present and posterior tibial pulses present GI Inspection: No distended and No Abdominal panniculus present Palpation (GI): Soft to palpation, nontender, no guarding, not rigid and No hepatosplenomegaly present Percussion: Yes normal to percussion Auscultation: normal bowel sounds Rectal Exam - Female: deferred Skin General skin exam: no rashes or lesions noted, turgor normal, skin not dry, no jaundice, No spider nevi and no striae Rashes: no rashes Nails: normal Neuro General: oriented to person, oriented to place and oriented to time Cranial nerves: Yes Equal, round and reactive pupils present and Yes Normal hearing present Speech: No Abnormal speech present Extrem Other: jenny and bandage right hand General: Yes normal to inspection, No clubbing, No cyanosis and No edema Psych Appearance: grossly normal and well kempt Mental Status: mental status grossly normal Speech and movement: Normal speech and movement present Affect: normal affect Attitude: cooperative Thought process: Normal thought process present and not confabulating Thought content: Normal thought content present Insight: Fair insight present (Psych) Judgement: Fair judgement present (Psych) Assessment & Plan Assessment & Plan (1) Constipation: Code(s): K59.00 - Constipation, unspecified Plan: She is doing better with the senna and the CIC, but would like to go up to 3 tabs a day on the senna. I tell her this is okay. She had her trigger finger surgery and is recovering well, will get the bandage off today. She has not been taking the o2o because she has not been having GERD or dyspepsia. ROV 6 mos. (2) GERD (gastroesophageal reflux disease): Code(s): K21.9 - Gastro-esophageal reflux disease without esophagitis (3) IBS (irritable colon syndrome): Code(s): K58.9 - Irritable bowel syndrome without diarrhea Medications: Changed From sennosides 8.6 mg PO BEDTIME 60 tabs 6RF K59.00 - Constipation, unspecified To sennosides (Senna Laxative) 25.8 mg (3 x 8.6 mg) PO BEDTIME 90 tabs 6RF K59.00 - Constipation, unspecified Coding Level of Care Code Est Pt Level 3 (14842) Diagnoses Constipation K59.00 GERD (gastroesophageal reflux disease) K21.9 IBS (irritable colon syndrome) K58.9
[2023-02-21 13:55] VITALS: BP 123/72; PULSE 88; BMI 23.8
== END 2023-02-21 14:08 | disposition home or self-care (01) ==
PROVIDERS: Visit Provider Nurse Practitioner
DX: K59.00 Constipation, unspecified (principal); K21.9 Gastro-esophageal reflux disease without esophagitis; K58.9 Irritable bowel syndrome, unspecified
CPT/HCPCS: 99213

== ENCOUNTER → 2023-02-21 13:45 | Outpatient (BNVA) | payer OTHER, SELFPAY | PROVIDERS: Visit Provider Nurse Practitioner | DX: K59.04 Chronic idiopathic constipation (principal); K21.9 Gastro-esophageal reflux disease without esophagitis; K58.9 Irritable bowel syndrome, unspecified; Z79.899 Other long term (current) drug therapy | CPT/HCPCS: 99212 ==

== ENCOUNTER 2023-03-14 09:55 | Outpatient (REF) | payer OTHER, SELFPAY ==
--- NOTE | 2023-03-14 09:58 | EMG_ITS ---
Bilateral tibial and peroneal motor studies were performed. Bilateral superficial peroneal and sural sensory studies were performed tibial H reflexes were obtained and paraspinal muscles were tested with a needle. 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 MD GRIFFIN Callejas/PATRICIA / [id number]
== END 2023-03-14 09:56 | disposition home or self-care (01) ==
LOC: HO.NEURO 09:55
PROVIDERS: Visit Provider Internal Medicine
DX: M79.604 Pain in right leg (principal); M79.605 Pain in left leg
CPT/HCPCS: 95886; 95911

== ENCOUNTER 2023-06-25 13:59 | Outpatient (AMB) | payer OTHER, SELFPAY ==
--- NOTE | 2023-06-25 14:03 | A.OFFVIS_ITS ---
Intake Vital Signs 06/25/23 14:07 Height 5 ft 2 in Weight 134 lb 14.766 oz BMI 24.7 BP 127/78 Blood Pressure Location Rt brachial Position Sitting Pulse 77 Intake Visit Reasons: 4 month follow up Intake Note: Patient returns to in office visit today in 4 months follow up of constipation. CC: Patient reports doing well, she sometimes has constipation but is well managed with medications. Denies having any other GI concerns or symptoms today. She states that she used to take atorvastatin for high cholesterol but her PCP discontinued it d/t side effects. She is concerned she has not been taking anything and she has always had high cholesterol. Acquisition Manager Required: No Accompanied by: Self / Same As Patient Allergies blue dye Allergy (Intermediate, Verified 06/25/23 14:12) Hives iodine Allergy (Unknown, Verified 06/25/23 14:12) unknow metformin [Janumet XR] Allergy (Unknown, Verified 06/25/23 14:12) hives sitagliptin [Janumet XR] Allergy (Unknown, Verified 06/25/23 14:12) hives HPI 4 month follow up HPI Details Assessment & Plan (1) Constipation: Code(s): K59.00 - Constipation, unspecified Plan: She is doing better with the senna and the CIC, but would like to go up to 3 tabs a day on the senna. I tell her this is okay. She had her trigger finger surgery and is recovering well, will get the bandage off today. She has not been taking the o2o because she has not been having GERD or dyspepsia. ROV 6 mos. (2) GERD (gastroesophageal reflux diseas e): Code(s): K21.9 - Gastro-esophageal reflux disease without esophagitis (3) IBS (irritable colon syndrome): Code(s): K58.9 - Irritable bowel syndrome without diarrhea Medications: Changed From sennosides 8.6 mg PO BEDTIME 60 tabs 6RF K59.00 - Constipat ion, unspecified To sennosides (Senna Laxative) 25.8 mg (3 x 8.6 m g) PO BEDTIME 90 t abs 6RF K59.00 - Constipat ion, unspecified TODAY'S VISIT She continues on senna 3 tabs and moves her bowels qod. She not longer has to take any acid reducing therapy since restoring bowel motility. She expresses concern that she is not having any blood testing for diabetes or cholesterol. She stopped taking lipitor r/t back pain and muscle cramps in her legs. She has a hx of cardiac mortality in her mother at age 66, and she has also failed other statins and crestor. I will refer her to Cardiology since I know there are newer agents available for this and she does not think that her primary care provider is knowledgeable about what may be available to her. I would worry about giving her fenofibrate because of her constipation but this is something that could be considered. Perhaps an adenosine tri phosphate inhibitor. ROV 6 mos. PFS Medical History (Updated 06/25/23 @ 14:54 by ANKITA Hernandez) Uterine fibroid Hx of hepatitis C Diabetes mellitus Pseudocyst of pancreas IBS (irritable colon syndrome) GERD (gastroesophageal reflux disease) Surgical History (Updated 02/21/23 @ 13:53 by Lashae Jacobsen) History of trigger finger History of esophagogastroduodenoscopy (EGD) Hx of colonoscopy Family History Father No problems noted. Mother No problems noted. 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 [employer] Systems Const Denies fatigue, Denies fever(s), Denies night sweats, Denies poor appetite and Denies weight loss ENT Reports Normal hearing present, Denies dental pain, Denies dysphagia, Denies hearing loss, Denies mouth pain, Denies odynophagia, Denies throat swelling, Denies tongue swelling and Reports other (Dentition adequate) Card Reports no additional complaints Resp Reports no additional complaints GI Denies abdominal pain, Denies melena, Denies bloating, Denies hematochezia, Reports constipation, Denies GI cramping, Denies dysphagia, Denies excessive flatus, Denies early satiety, Denies heartburn, Denies diarrhea, Denies nausea, Denies odynophagia, Denies vomiting and Denies hematemesis Musc Reports back pain, Reports myalgias and Reports muscle cramps Skin/Breast Denies pruritus, Denies lesions, Denies rash and Denies jaundice Neuro Reports Normal hearing present and Denies Abnormal speech present Endo Denies fatigue Aller/Immun Denies throat swelling and Denies tongue swelling Physical Exam Vital Signs: Last Vital Signs Pulse 77 06/25/23 14:07 BP 127/78 06/25/23 14:07 BMI result Body Mass Index 24.7 Const General: cooperative, no acute distress, well developed and well groomed Nutritional Appearance: average body habitus and well nourished Orientation/consciousness: oriented to person, oriented to place and oriented to time Limitations: No language barrier HEENT Head: Yes normocephalic and Yes atraumatic Eyes General: appearance normal, both eyes and all related structures Pupils: Equal, round and reactive pupils present Neck Neck: Yes normal visual inspection and Yes no lymphadenopathy Thyroid: Thyroid normal Resp Effort & Inspection: normal respiratory effort and able to speak in complete sentences Auscultation: clear to auscultation bilaterally Cardio Rate: regular rate Rhythm: regular rhythm Heart sounds: Normal, physiologic split S2 sound present Peripheral pulses: radial pulses present and posterior tibial pulses present GI Inspection: No distended and No Abdominal panniculus present Palpation (GI): Soft to palpation, nontender, no guarding, not rigid and No hepatosplenomegaly present Percussion: Yes normal to percussion Auscultation: normal bowel sounds Rectal Exam - Female: deferred Skin General skin exam: no rashes or lesions noted, turgor normal, skin not dry, no jaundice, No spider nevi and no striae Rashes: no rashes Nails: normal Neuro General: oriented to person, oriented to place and oriented to time Cranial nerves: Yes Equal, round and reactive pupils present and Yes Normal hearing present Speech: No Abnormal speech present Extrem General: Yes normal to inspection, No clubbing, No cyanosis and No edema Psych Appearance: grossly normal and well kempt Mental Status: mental status grossly normal Speech and movement: Normal speech and movement present Affect: normal affect Attitude: cooperative Thought process: Normal thought process present and not confabulating Thought content: Normal thought content present Insight: Fair insight present (Psych) Judgement: Fair judgement present (Psych) Assessment & Plan Assessment & Plan (1) GERD (gastroesophageal reflux disease): Comment: resolved with restoring bowel motility Code(s): K21.9 - Gastro-esophageal reflux disease without esophagitis (2) IBS (irritable colon syndrome): Code(s): K58.9 - Irritable bowel syndrome without diarrhea (3) Constipation: Code(s): K59.00 - Constipation, unspecified (4) Family history of cardiac arrest: Comment: Mother age 66 Code(s): Z82.49 - Family history of ischemic heart disease and other diseases of the cir culatory system (5) Statin intolerance: Code(s): Z78.9 - Other specified health status (6) High cholesterol: Code(s): E78.00 - Pure hypercholesterolemia, unspecified Plan She continues on senna 3 tabs and moves her bowels qod. She not longer has to take any acid reducing therapy since restoring bowel motility. She expresses concern that she is not having any blood testing for diabetes or cholesterol. She stopped taking lipitor r/t back pain and muscle cramps in her legs. She has a hx of cardiac mortality in her mother at age 66, and she has also failed other statins and crestor. I will refer her to Cardiology since I know there are newer agents available for this and she does not think that her primary care provider is knowledgeable about what may be available to her. I would worry about giving her fenofibrate because of her constipation but this is something that could be considered. Perhaps an adenosine tri phosphate inhibitor. ROV 6 mos. Orders: Referrals Cardiology Referral E78.00 - Pure hypercholesterolemia, unspecified, Z78.9 - Other specified health status, Z82.49 - Family history of ischemic heart disease and other diseases of the circulatory system Medications: Refilled sennosides (Senna Laxative) 25.8 mg (3 x 8.6 mg) PO BEDTIME 90 tabs 6RF K59.00 - Constipation, unspecified Coding Level of Care Code Est Pt Level 3 (00145) Diagnoses GERD (gastroesophageal reflux disease) K21.9 IBS (irritable colon syndrome) K58.9 Constipation K59.00 Family history of cardiac arrest Z82.49 Statin intolerance Z78.9 High cholesterol E78.00
[2023-06-25 14:07] VITALS: BP 127/78; PULSE 77; BMI 24.7
== END 2023-06-25 14:57 | disposition home or self-care (01) ==
PROVIDERS: Visit Provider Nurse Practitioner
DX: K21.9 Gastro-esophageal reflux disease without esophagitis (principal); K58.9 Irritable bowel syndrome, unspecified; K59.00 Constipation, unspecified; Z82.49 Family history of ischemic heart disease and other diseases of the circulatory system; Z78.9 Other specified health status; E78.00 Pure hypercholesterolemia, unspecified
CPT/HCPCS: 99213

== ENCOUNTER → 2023-06-25 13:59 | Outpatient (BNVA) | payer OTHER, SELFPAY | PROVIDERS: Visit Provider Nurse Practitioner | DX: K59.00 Constipation, unspecified (principal); K21.9 Gastro-esophageal reflux disease without esophagitis; K58.9 Irritable bowel syndrome, unspecified; E78.00 Pure hypercholesterolemia, unspecified; Z82.49 Family history of ischemic heart disease and other diseases of the circulatory system | CPT/HCPCS: 99212 ==

== ENCOUNTER 2024-01-08 13:35 | Outpatient (AMB) | payer OTHER, SELFPAY ==
--- NOTE | 2024-01-08 13:38 | MHC.OFFVIS ---
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 She is doing well with concerns: She reports frequency of urination, admits to drinking late at night takes her medicine by 10:00 o'clock drinks a whole bottle at that time. She admits to history of constipation. Attempting to eat a healthy diet with calcium and vitamin D, [place] and stays active with exercise-walks. Currently not sexually active w/partner. Denies any vaginal dryness or irritation. Last pap smear; 2022. Last mammogram; has chosen not to have the mammogram done she does not feel it is necessary. Colonoscopy is UTD. Denies any family history of breast, ovarian or colon cancer. [facility] Medical History (Updated 01/08/24 @ 13:48 by NARGIS Lopez) High cholesterol Uterine fibroid Hx of hepatitis C Diabetes mellitus Pseudocyst of pancreas IBS (irritable colon syndrome) GERD (gastroesophageal reflux disease) Surgical History History of trigger finger History of esophagogastroduodenoscopy (EGD) Hx of colonoscopy Family History Father No problems noted. Mother No problems noted. Social History Household Members: Significant Other Housing: Homeless Housing Other:: recently seperated from S.O and was kicked out of apartment Alcohol intake: current Alcohol intake frequency: does not drink Patient Tobacco Use Status: Never used Tobacco Current occupational status: disabled Current occupation: Rt handed Female Reproductive History Menstrual Menopause type: natural Total pregnancies: 2 Full term: 2 Number of Living Children: 2 Date of last pap smear: 07/19/22 (neg pap and hpv) Date of Mammogram: 04/05/21 (Birad 1) Review of Systems Const All systems reviewed & are unremarkable except as noted in HPI and below Reports as per HPI Eyes Reports no additional complaints ENT Reports no additional complaints Card Reports no additional complaints Resp Reports no additional complaints GI Reports as per HPI and Reports no additional complaints Reports as per HPI Musc Reports no additional complaints Skin/Breast Reports as per HPI Neuro Reports no additional complaints Psych Reports no additional complaints Endo Reports no additional complaints Damian/Lymph Reports no additional complaints Aller/Immun Reports no additional complaints Physical Exam Vital Signs: Last Vital Signs BP 124/70 01/08/24 13:39 BMI result Body Mass Index 24.5 Const General: cooperative, healthy appearing, no acute distress, well developed and alert Orientation/consciousness: patient oriented x3 HEENT Head: Yes normal to inspection Eyes General: appearance normal, both eyes and all related structures Neck Neck: Yes normal visual inspection Thyroid: Thyroid normal Chest Chest palpation & inspection: normal inspection of the chest and other (no puckering, dimpling, peau de orange, retraction, discharge, masses) Breast/axilla inspection: normal inspection of the breasts Breast/axilla palpation: normal palpation of the breasts Resp Effort & Inspection: normal respiratory effort GI Other: Slightly tender in the left lower superficial area of her abdominal wall Inspection: Yes normal to inspection and Yes scar Palpation (GI): Soft to palpation and Other GI palpation findings present (Tenderness to the left side of her scar superficially on the abdominal wall) Rectal Exam - Female: deferred General: Yes bladder normal to palpation External Female Exam: normal external appearance and normal appearance of the urethra Speculum Exam - Vagina: normal appearance of the vagina, normal palpation, normal vaginal discharge and vagina atrophic Speculum Exam - Cervix: normal appearance of the cervix and normal palpation Bimanual exam- vagina & uterus: normal bimanual exam, normal palpation, uterine size normal, bladder normal to palpation, normal palpation and non-tender Bimanual Exam- Adnexa, other: Other (Fullness to the right lower abdomen, ?loop of bowel/stool) Skin General skin exam: no rashes or lesions noted Rashes: no rashes Neuro General: patient oriented x3 Cognition (Neuro): normal cognition Extrem General: Yes normal to inspection Psych Attitude: cooperative Thought process: Normal thought process present Results AMB Urinalysis, Automated UA Leukoctes 0.5 Florinda/uL Last Edit by NARGIS Loepz on 01/08/24 14:25 UA Nitrite Negative Last Edit by Marybeth Zepeda [facility] on 01/08/24 14:25 UA Urobilinogen 0 mg/dL Last Edit by Marybeth Zepeda Serina on 01/08/24 14:25 UA Protein 0 mg/dL Last Edit by Marybeth Zepeda [facility] on 01/08/24 14:25 UA pH 7.5 Last Edit by Marybeth Zepeda [facility] on 01/08/24 14:25 UA Blood 0 Angel/uL Last Edit by Marybeth Zepeda [facility] on 01/08/24 14:25 UA Specific [place] 1.005 Last Edit by Marybeth Zepeda Serina on 01/08/24 14:25 UA Ketone Negative Last Edit by Marybeth Zepeda Serina on 01/08/24 14:25 UA Bilirubin 0 mg/dL Last Edit by Marybeth Zepeda [facility] on 01/08/24 14:25 UA Glucose 0 mg/dL Last Edit by Marybeth Zepeda [facility] on 01/08/24 14:25 Results Reviewed Results Reviewed: Laboratory Last Values Urine pH (Auto) 7.5 01/08/24 14:24 Specific [place] (Auto) 1.005 01/08/24 14:24 Urine Protein (Auto) 0 mg/dL 01/08/24 14:24 Glucose (UA)(Auto) 0 mg/dL 01/08/24 14:24 Urine Ketones (Auto) Negative 01/08/24 14:24 Urine Blood (Auto) 0 Angel/uL 01/08/24 14:24 Urine Nitrite (Auto) Negative 01/08/24 14:24 Urine Bilirubin (Auto) 0 mg/dL 01/08/24 14:24 Urine Urobilinogen (Auto) 0 mg/dL 01/08/24 14:24 Leukocyte Esterase (Auto) 0.5 Florinda/uL 01/08/24 14:24 Assessment & Plan Assessment & Plan (1) Encounter for well woman exam with routine gynecological exam: Code(s): Z01.419 - Encounter for gynecological examination (general) (routine) without abnormal findings Category: Medical (2) Vaginal atrophy: Code(s): N95.2 - Postmenopausal atrophic vaginitis (3) Pelvic fullness: Code(s): R19.00 - Intra-abdominal and pelvic swelling, mass and lump, unspecified site Plan Discussed: Current recommendations for pap smears per ASCCP guidelines. Breast awareness, periodic self breast exams and yearly mammogram. Strongly encouraged have completed and reviewed benefits of mammogram. Plan pelvic ultrasound. Follow up in person. Urine dip today-negative. Superficial tenderness may be due to scar tissue adhesions, if bothersome can consider seeing pain management to treat. She admits to having some pulling sensation from time to time in that region. Advised her to speak to her primary care about concerns today. Maintain a healthy lifestyle, well balanced diet including Calcium 1,200 mg and Vitamin D 600 IU daily, and routine exercise. Contact the office with any postmenopausal bleeding. Patient verbalizes understanding and agrees to the plan of care. She was given opportunity to ask questions and all questions were answered to the best of my ability. 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 This note is constructed using voice recognition software. While every effort has been made to ensure accuracy, cash posting representative errors may have been included. Orders: Orders AMB Urinalysis Automated Today R19.00 - Intra-abdominal and pelvic swelling, mass and lump, unspecified site US pelvic and transvaginal Today N94.9 - Unspecified condition associated with female genital organs and menstrual cycle MM tomosynthesis screening BI Today Z12.31 - Encounter for screening mammogram for malignant neoplasm of breast Coding Level of Care Code Est Pt Prev Care >65y(37393) Diagnoses Encounter for well woman exam with routine gynecological exam Z01.419 Vaginal atrophy N95.2 Pelvic fullness R19.00
[2024-01-08 13:39] VITALS: BP 124/70; BMI 24.5
== END 2024-01-08 14:24 | disposition home or self-care (01) ==
PROVIDERS: PCP Internal Medicine; Visit Provider Advanced Practice Midwife
DX: Z01.419 Encounter for gynecological examination (general) (routine) without abnormal findings (principal); N95.2 Postmenopausal atrophic vaginitis; R19.00 Intra-abdominal and pelvic swelling, mass and lump, unspecified site
CPT/HCPCS: 99397

== ENCOUNTER → 2024-01-08 13:35 | Outpatient (BNVA) | payer OTHER, SELFPAY | PROVIDERS: PCP Internal Medicine; Visit Provider Advanced Practice Midwife | DX: Z01.419 Encounter for gynecological examination (general) (routine) without abnormal findings (principal); N95.2 Postmenopausal atrophic vaginitis; R19.00 Intra-abdominal and pelvic swelling, mass and lump, unspecified site | CPT/HCPCS: 81003 ==

== ENCOUNTER 2024-01-14 13:22 | Outpatient (AMB) | payer OTHER, SELFPAY ==
--- NOTE | 2024-01-14 13:25 | MHC.OFFVIS ---
Vital Signs 01/14/24 13:34 Height 5 ft 2 in Weight 134 lb 14.766 oz BMI 24.7 BP 116/69 Blood Pressure Location Lt brachial Position Sitting Pulse 83 Intake Visit Reasons: 6 month follow up Intake Note: Patient returns to in office visit today in 6 months follow up of constipation. CC: Patient reports that she was in [place] and fell from a hammock and hurt her back she went to the hospital and had a CT scan done. She brought the CT scan report and disc today for provider to review. She denies having any other GI symptoms today. Crt Required: No Accompanied by: Self / Same As Patient Allergies blue dye Allergy (Intermediate, Verified 01/14/24 13:39) Hives iodine Allergy (Unknown, Verified 01/14/24 13:39) unknow metformin [Janumet XR] Allergy (Unknown, Verified 01/14/24 13:39) hives sitagliptin [Janumet XR] Allergy (Unknown, Verified 01/14/24 13:39) hives HPI HPI 6 month follow up: Details: Assessment & Plan (1) GERD (gastroesophageal reflux disease): Comment: resolved with restoring bowel motility Code(s): K21.9 - Gastro-esophageal reflux disease without esophagitis (2) IBS (irritable colon syndrome): Code(s): K58.9 - Irritable bowel syndrome without diarrhea (3) Constipation: Code(s): K59.00 - Constipation, unspecified (4) Family history of cardiac arrest: Comment: Mother age 66 Code(s): Z82.49 - Family history of ischemic heart disease and other diseases of the circulatory system (5) Statin intolerance: Code(s): Z78.9 - Other specified health status (6) High cholesterol: Code(s): E78.00 - Pure hypercholesterolemia, unspecified Plan She continues on senna 3 tabs and moves her bowels qod. She not longer has to take any acid reducing therapy since restoring bowel motility. She expresses concern that she is not having any blood testing for diabetes or cholesterol. She stopped taking lipitor r/t back pain and muscle cramps in her legs. She has a hx of cardiac mortality in her mother at age 66, and she has also failed other statins and crestor. I will refer her to Cardiology since I know there are newer agents available for this and she does not think that her primary care provider is knowledgeable about what may be available to her. I would worry about giving her fenofibrate because of her constipation but this is something that could be considered. Perhaps an adenosine tri phosphate inhibitor. ROV 6 mos. Orders: Referrals Cardiology Referral E78.00 - Pure hypercholesterolemia, unspecified, Z78.9 - Other specified health status, Z82.49 - Family history of ischemic heart disease and other diseases of the circulatory system Medications: Refilled sennosides (Senna Laxative) 25.8 mg (3 x 8.6 mg) PO BEDTIME 90 tabs 6RF K59.00 - Constipation, unspecified TODAY'S VISIT She fell in [place] and had a CT showing renal stones and adnexal cysts left>rt. Report is scanned into chart. She had been there to help her sister who was ill. She had severe right sided pain r/t a fall and she even had pain with a deep breath. She says that the renal stones and ovarian cysts have been there for a long time but she was worried about the pancreatic incidentaloma - which is non concerning. It really sounds like she had deep musculoskeletal injury like hematoma or muscle tears that would not be well appreciated on CT. She has an upcoming appt with cardiology in February for her significant FHX of cardiac disease and high cholesterol with statin intolerances. She continues on her senna with good control of her constipation. RoV 6 mos. [facility] Medical History Preop examination Hx of hepatitis C Encounter to discuss test results Encounter for well woman exam with routine gynecological exam High cholesterol Uterine fibroid Diabetes mellitus Pseudocyst of pancreas IBS (irritable colon syndrome) GERD (gastroesophageal reflux disease) Surgical History History of trigger finger History of esophagogastroduodenoscopy (EGD) Hx of colonoscopy Family History Father No problems noted. Mother No problems noted. Social History Household Members: Significant Other Housing: Homeless Housing Other:: recently seperated from [employer] and was kicked out of apartment Alcohol intake: current Alcohol intake frequency: does not drink Patient Tobacco Use Status: Never used Tobacco Current occupational status: disabled Current occupation: Rt handed Review of Systems Const Denies fatigue, Denies fever(s), Denies night sweats, Denies poor appetite and Denies weight loss ENT Reports Normal hearing present, Denies dental pain, Denies dysphagia, Denies hearing loss, Denies mouth pain, Denies odynophagia, Denies throat swelling, Denies tongue swelling and Reports other (Dentition adequate) Card Reports no additional complaints Resp Reports no additional complaints GI Details: Denies abdominal pain, Denies melena, Denies bloating, Denies hematochezia, Reports constipation, Denies GI cramping, Denies dysphagia, Denies excessive flatus, Denies early satiety, Denies heartburn, Denies diarrhea, Denies nausea, Denies odynophagia, Denies vomiting and Denies hematemesis Reports flank pain Musc Reports back pain and Reports stiffness Skin/Breast Denies pruritus, Denies lesions, Denies rash and Denies jaundice Neuro Reports Normal hearing present and Denies Abnormal speech present Endo Denies fatigue Aller/Immun Denies throat swelling and Denies tongue swelling Physical Exam Vital Signs: Last Vital Signs Pulse 83 01/14/24 13:34 BP 116/69 01/14/24 13:34 BMI result Body Mass Index 24.7 Const General: cooperative, no acute distress, well developed and well groomed Nutritional Appearance: average body habitus and well nourished Orientation/consciousness: oriented to person, oriented to place and oriented to time Limitations: No language barrier HEENT Head: Yes normocephalic and Yes atraumatic Eyes General: appearance normal, both eyes and all related structures Pupils: Equal, round and reactive pupils present Neck Neck: Yes normal visual inspection and Yes no lymphadenopathy Thyroid: Thyroid normal Resp Effort & Inspection: normal respiratory effort and able to speak in complete sentences Auscultation: clear to auscultation bilaterally Cardio Rate: regular rate Rhythm: regular rhythm Heart sounds: Normal, physiologic split S2 sound present Peripheral pulses: radial pulses present and posterior tibial pulses present GI Inspection: No distended and No Abdominal panniculus present Palpation (GI): Soft to palpation, nontender, no guarding, not rigid and No hepatosplenomegaly present Percussion: Yes normal to percussion Auscultation: normal bowel sounds Rectal Exam - Female: deferred Skin General skin exam: no rashes or lesions noted, turgor normal, skin not dry, no jaundice, No spider nevi and no striae Rashes: no rashes Nails: normal Neuro General: oriented to person, oriented to place and oriented to time Cranial nerves: Yes Equal, round and reactive pupils present and Yes Normal hearing present Speech: No Abnormal speech present Extrem General: Yes normal to inspection, No clubbing, No cyanosis and No edema Psych Appearance: grossly normal and well kempt Mental Status: mental status grossly normal Speech and movement: Normal speech and movement present Affect: normal affect Thought process: Normal thought process present and not confabulating Thought content: Normal thought content present Insight: Limited insight present (Psych) Judgement: Limited judgement present (Psych) Assessment & Plan Assessment & Plan (1) IBS (irritable colon syndrome): Code(s): K58.9 - Irritable bowel syndrome without diarrhea Category: Medical (2) GERD (gastroesophageal reflux disease): Comment: resolved with restoring bowel motility Code(s): K21.9 - Gastro-esophageal reflux disease without esophagitis Category: Medical Plan She fell in [place] and had a CT showing renal stones and adnexal cysts left>rt. Report is scanned into chart. She had been there to help her sister who was ill. She had severe right sided pain r/t a fall and she even had pain with a deep breath. She says that the renal stones and ovarian cysts have been there for a long time but she was worried about the pancreatic incidentaloma - which is non concerning. It really sounds like she had deep musculoskeletal injury like hematoma or muscle tears that would not be well appreciated on CT. She has an upcoming appt with cardiology in February for her significant FHX of cardiac disease and high cholesterol with statin intolerances. She continues on her senna with good control of her constipation. RoV 6 mos. Coding Level of Care Code Est Pt Level 3 (11759) Diagnoses IBS (irritable colon syndrome) K58.9 GERD (gastroesophageal reflux disease) K21.9
[2024-01-14 13:34] VITALS: BP 116/69; PULSE 83; BMI 24.7
== END 2024-01-14 14:03 | disposition home or self-care (01) ==
PROVIDERS: PCP Internal Medicine; Visit Provider Nurse Practitioner
DX: K58.9 Irritable bowel syndrome, unspecified (principal); K21.9 Gastro-esophageal reflux disease without esophagitis
CPT/HCPCS: 99213

== ENCOUNTER → 2024-01-14 13:22 | Outpatient (BNVA) | payer OTHER, SELFPAY | PROVIDERS: PCP Internal Medicine; Visit Provider Nurse Practitioner | DX: K58.9 Irritable bowel syndrome, unspecified (principal); K21.9 Gastro-esophageal reflux disease without esophagitis | CPT/HCPCS: 99212 ==

== ENCOUNTER 2024-01-15 12:28 | Outpatient (REF) | payer OTHER, SELFPAY ==
--- NOTE | ~2024-01-15 | US_ITS ---
EXAMINATION: US PELVIS CLINICAL INFORMATION: Adnexal fullness. COMPARISON: Ultrasound pelvis 04/18/2021 TECHNIQUE: Ultrasound of the pelvis is performed using both transabdominal and transvaginal transducers along with Doppler. Transvaginal imaging is performed due to inadequate visualization transabdominally. FINDINGS: Uterus: The uterus is anteverted and measures 10.2 x 2.1 x 2.0 cm. The double wall endometrial thickness could not be seen The uterus is smooth in contour and has normal myometrial echogenicity. A fibroid is present on the right measuring 5.1 x 3.6 x 4.2 cm (previously 5.2 x 3.6 x 3.8 cm). Nabothian cysts are present in the cervix. Adnexa: Both ovaries are visualized on transabdominal scans only. There is normal color flow to the adnexa. There is no ovarian torsion. There is no pelvic ascites or fluid collection. Right ovary measures 2.1 x 1.2 x 1.8 cm for a volume of 2.4 mL which includes a complex 1.2 cm cyst. In the right adnexa there is a 2.5 x 4.7 x 2.7 cm echogenic mass which could be related to the ovary and possibly a dermoid. The exam is extremely limited. On the prior CT scan, a right adnexal mass was seen measuring 7.7 x 4.0 x 5.0 cm. At the time of the prior ultrasound, the right ovary was not seen. Left ovary measures 3.9 x 2.7 x 3.7 cm for a volume of 20.4 mL which includes a benign simple 3.4 x 2.1 x 2.7 cm cyst. US/US pelvic and transvaginal IMPRESSION: 1. Uterine fibroid. 2. Bilateral ovarian cysts. 3. Right adnexal mass which could be related to the ovary and possibly a dermoid. Pelvic MRI could be performed for further evaluation. Electronically signed by: Lenard Perry MD 02/04/2024 12:35 AM EDT
== END 2024-01-15 12:29 | disposition home or self-care (01) ==
LOC: HO.US 12:28
PROVIDERS: PCP Internal Medicine; Visit Provider Advanced Practice Midwife
DX: N94.9 Unspecified condition associated with female genital organs and menstrual cycle (principal)
CPT/HCPCS: 76830; 76856

== ENCOUNTER 2024-01-24 09:02 | Outpatient (REF) | payer OTHER, SELFPAY ==
[2024-01-24 12:06] LABS: Creatinine Urine 100.76 mg/dL; Microalbum/Creatinine Ratio Ur 9.9 ug/mg cr (<30)
[2024-01-24 13:15] LABS: MANUAL DIFF FLAG NO
[2024-01-24 13:35] LABS: Basophils Absolute Auto 0.1 X10*3/uL (0.0-0.2); Basophils Percent Auto 0.6 % (0-2); Eosinophils Absolute Auto 0.3 X10*3/uL (0.0-0.4); Eosinophils Percent Auto 2.7 % (0-4); Hematocrit 41.1 % (37.0-47.0); Hemoglobin 13.6 g/dl (12.0-16.0); Imm Gran Abs Auto 0.03 X10*3/uL (0.00-0.03); Imm Gran Pct Auto 0.3 % (0.0-0.4); Lymphocytes Absolute Auto 1.7 X10*3/uL (1.2-4.9); Lymphocytes Percent Auto 17.8 % (20-40); Mean Corpuscular HGB Conc 33.1 g/dl (31.0-35.0); Mean Corpuscular Hemoglobin 31.9 pg (27.0-33.0); Mean Corpuscular Volume 96.5 fL (80.0-98.0); Mean Platelet Volume 10.4 fL (9.4-12.3); Monocytes Absolute Auto 0.8 X10*3/uL (0.1-1.2); Monocytes Percent Auto 7.8 % (2-11); Neutrophils Absolute Auto 6.8 x10*3/uL (2.0-8.3); Neutrophils Percent Auto 70.8 % (45-73); Platelet Count 322 X10*3/uL (160-400); Red Blood Count 4.26 X10*6/uL (4.20-5.50); Red Cell Distribution Width 14.7 % (11.0-16.0); White Blood Count 9.6 X10*3/uL (4.8-10.8)
[2024-01-24 14:06] LABS: Alanine Aminotransferase 25 U/L (0-31); Alkaline Phosphatase 76 U/L (39-117); Anion Gap 13 (12-20); Aspartate Amino Transferase 22 U/L (5-31); Bilirubin Total 0.6 mg/dL (0.0-1.0); Blood Urea Nitrogen 12 mg/dL (9-16); Calcium 9.6 mg/dL (8.4-10.2); Carbon Dioxide 26 mmol/L (22-29); Chloride 105 mmol/L (96-108); Cholesterol 193 mg/dL (<200); Estimated Glomerular Filt Rate > 60; Glucose Random 109 mg/dL (60-115); HDL Cholesterol 54 mg/dL (>40); LDL Cholesterol Calculated 111 mg/dL (<100); Potassium 4.2 mmol/L (3.3-5.1); Sodium 140 mmol/L (135-145); Total Protein 7.5 g/dL (6.5-8.0); Triglycerides 144 mg/dL (<150)
[2024-01-24 14:24] LABS: TSH reflex Free T4 2.27 uIU/mL (0.32-4.0)
[2024-01-24 14:26] LABS: Reflex LDLD? No
== END 2024-01-24 09:03 | disposition home or self-care (01) ==
LOC: HO.HHCL 09:02
PROVIDERS: Visit Provider Internal Medicine
DX: E11.42 Type 2 diabetes mellitus with diabetic polyneuropathy (principal)
CPT/HCPCS: 36415; 80053; 80061; 82043; 82570; 84443; 85025

== ENCOUNTER 2024-02-13 09:35 | Outpatient (AMB) | payer OTHER, SELFPAY ==
--- NOTE | 2024-02-13 09:41 | A.OFFVIS_ITS ---
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 She reports she was in [place] in November through December and fell on her right side had a CT scan that revealed she had a pelvic mass. She reports that she was told in [place] she should not have a MRI due to her severe allergies to iodine due to the contrast medium. [facility] Medical History Preop examination Hx of hepatitis C Encounter to discuss test results Encounter for well woman exam with routine gynecological exam High cholesterol Uterine fibroid Diabetes mellitus Pseudocyst of pancreas IBS (irritable colon syndrome) GERD (gastroesophageal reflux disease) Surgical History History of trigger finger History of esophagogastroduodenoscopy (EGD) Hx of colonoscopy Family History Father No problems noted. Mother No problems noted. Social History Household Members: Significant Other Housing: Homeless Housing Other:: recently seperated from [employer] and was kicked out of apartment Alcohol intake: current Alcohol intake frequency: does not drink Patient Tobacco Use Status: Never used Tobacco Current occupational status: disabled Current occupation: Rt handed Review of Systems Const All systems reviewed & are unremarkable except as noted in HPI and below Endo Reports no additional complaints Physical Exam Const General: cooperative, healthy appearing and no acute distress Psych Appearance: well kempt Attitude: cooperative Thought process: Normal thought process present Results Reviewed Results Reviewed: [address] [address] Ultrasound Report Signed Patient: Kalee Chairez I MR#: [id number] : 1960 Acct:[id number] Age/Sex: 63 / F ADM Date: 01/15/24 Loc: HO.US Attending Dr: Ruby Gonzalez CNM Ordering Physician: Ruby Gonzalez CNM Date of Service: 01/15/24 Procedure(s): US pelvic and transvaginal Accession Number(s): [id number] cc: Lashae Mcguire MD; Ruby Gonzalez CNM~ EXAMINATION: US PELVIS CLINICAL INFORMATION: Adnexal fullness. COMPARISON: Ultrasound pelvis 04/18/2021 TECHNIQUE: Ultrasound of the pelvis is performed using both transabdominal and transvaginal transducers along with Doppler. Transvaginal imaging is performed due to inadequate visualization transabdominally. FINDINGS: Uterus: The uterus is anteverted and measures 10.2 x 2.1 x 2.0 cm. The double wall endometrial thickness could not be seen The uterus is smooth in contour and has normal myometrial echogenicity. A fibroid is present on the right measuring 5.1 x 3.6 x 4.2 cm (previously 5.2 x 3.6 x 3.8 cm). Nabothian cysts are present in the cervix. Adnexa: Both ovaries are visualized on transabdominal scans only. There is normal color flow to the adnexa. There is no ovarian torsion. There is no pelvic ascites or fluid collection. Right ovary measures 2.1 x 1.2 x 1.8 cm for a volume of 2.4 mL which includes a complex 1.2 cm cyst. In the right adnexa there is a 2.5 x 4.7 x 2.7 cm echogenic mass which could be related to the ovary and possibly a dermoid. The exam is extremely limited. On the prior CT scan, a right adnexal mass was seen measuring 7.7 x 4.0 x 5.0 cm. At the time of the prior ultrasound, the right ovary was not seen. Left ovary measures 3.9 x 2.7 x 3.7 cm for a volume of 20.4 mL which includes a benign simple 3.4 x 2.1 x 2.7 cm cyst. US/US pelvic and transvaginal IMPRESSION: 1. Uterine fibroid. 2. Bilateral ovarian cysts. 3. Right adnexal mass which could be related to the ovary and possibly a dermoid. Pelvic MRI could be performed for further evaluation. Electronically signed by: Lenard Perry MD 02/04/2024 12:35 AM EDT RP Dictated By: Lenard Perry MD Signed By: <Electronically signed by Lenard Perry MD in OV> 02/04/24 0035 DD/ 1245 TD/TT: 01/15/24 1304 Rn Infusion: SS Assessment & Plan Assessment & Plan (1) Pelvic mass: Code(s): R19.00 - Intra-abdominal and pelvic swelling, mass and lump, unspecified site Category: Medical Plan Discussed: Ultrasound findings. Counseled regarding findings of: Ovarian mass, can be benign benign, premalignant or malignant. Limitations of testing for diagnostic purposes, MRI of pelvis with and without contrast ordered. Further monitoring and evaluation and possible surgical removal is recommended with consult to MD for care. Ca-125, Carbohydrate Antigen 19-9, & Carcinoembryonic Antigen labs. Referral to [facility]/ONC or general gynecology for MD care if indicated for possible surgical consult. Radiology MRI supervisor extruding department notified to review policy and protocol with regards to IVP contrast medium awaiting results of inquiry prior to ordering. All of her questions and concerns were addressed to the best of my ability and shared decision making. She is agreeable to the plan of care. This note is constructed using voice recognition software. While every effort has been made to ensure accuracy, well service pump equipment operator errors may have been included. Orders: Orders CA-125 02/13/24 N83.299 - Other ovarian cyst, unspecified side, R19.00 - Intra- abdominal and pelvic swelling, mass and lump, unspecified site Carcinoembryonic Antigen 02/13/24 R19.00 - Intra-abdominal and pelvic swelling, mass and lump, unspecified site Carbohydrate Antigen 19-9 02/13/24 R19.00 - Intra-abdominal and pelvic swelling, mass and lump, unspecified site Coding Level of Care Code Est Pt Level 3 (26420) Diagnoses Pelvic mass R19.00
== END 2024-02-13 10:22 | disposition home or self-care (01) ==
LOC: HO.HWS 09:35
PROVIDERS: PCP Internal Medicine; Visit Provider Advanced Practice Midwife
DX: R19.00 Intra-abdominal and pelvic swelling, mass and lump, unspecified site (principal)
CPT/HCPCS: 99213

== ENCOUNTER 2024-02-13 09:35 | Outpatient (REF) | payer OTHER, SELFPAY ==
[2024-02-15 10:09] LABS: Carbohydrate Antigen 19-9 26 U/mL (<34)
[2024-02-15 10:40] LABS: CA-125 3 U/mL (<35)
== END 2024-02-13 09:36 | disposition home or self-care (01) ==
LOC: HO.LAB 09:35
PROVIDERS: PCP Internal Medicine; Visit Provider Advanced Practice Midwife
DX: N83.291 Other ovarian cyst, right side (principal); R19.00 Intra-abdominal and pelvic swelling, mass and lump, unspecified site; Z86.19 Personal history of other infectious and parasitic diseases
CPT/HCPCS: 36415; 82378; 86301; 86304; 99212

== ENCOUNTER 2024-02-24 13:45 | Outpatient (AMB) | payer OTHER, SELFPAY ==
--- NOTE | 2024-02-24 13:52 | A.OFFVIS_ITS ---
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 (rs x2) Intake Note: New patient dx hypercholesteral with ekg c/o leg cramps and mx pain on the statin Allergies blue dye Allergy (Intermediate, Verified 02/13/24 09:41) Hives iodine Allergy (Unknown, Verified 02/13/24 09:41) unknow metformin [Janumet XR] Allergy (Unknown, Verified 02/13/24 09:41) hives sitagliptin [Janumet XR] Allergy (Unknown, Verified 02/13/24 09:41) hives Medication List - Last Reconciled 02/24/24 by Freddy Yun MD amlodipine 5 mg PO DAILY atorvastatin 40 mg PO DAILY blood sugar diagnostic (OneTouch Verio test strips) As directed gabapentin 300 mg PO TID lancets (FreeStyle Lancets) As directed lancets (OneTouch Delica Plus Lancet) As directed metformin 500 mg PO BID sitagliptin phosphate (Januvia) 100 mg PO DAILY HPI Comments Details: Thank you for referring Sakshi in cardiology consultation today for management of hyperlipidemia. Longstanding history of hyperlipidemia, diabetes, hypertension, currently on atorvastatin 40 mg daily. She said in the past she has tried multiple statin therapy including simvastatin as well as rosuvastatin and has had intolerance with muscle aches. Although she says the atorvastatin is worse. She gets diffuse muscle aches including chest cramps. She has tenderness to touch to the muscles. Never been diagnose with any musculoskeletal inflammatory disorder. Has not been evaluated by rheumatology. She was then prescribed Praluent and broke out in allergic rash. This had to be stopped. She is currently taking atorvastatin 40 mg with adequate response to lipid modification. Her baseline LDL significantly elevated, last time she had stopped taking her statin for 6-7 months LDL increased to 190 mg/dL. Strong family history of coronary artery disease as per her. She is otherwise she is doing well. She denies any exertional chest pain or shortness of breath. [facility] Medical History Preop examination Hx of hepatitis C Encounter to discuss test results Encounter for well woman exam with routine gynecological exam High cholesterol Uterine fibroid Diabetes mellitus Pseudocyst of pancreas IBS (irritable colon syndrome) GERD (gastroesophageal reflux disease) Surgical History History of trigger finger History of esophagogastroduodenoscopy (EGD) Hx of colonoscopy Family History Father No problems noted. Mother No problems noted. Social History Household Members: Significant Other Housing: Homeless Housing Other:: recently seperated from [employer] and was kicked out of apartment Alcohol intake: current Alcohol intake frequency: does not drink Patient Tobacco Use Status: Never used Tobacco Current occupational status: disabled Current occupation: Rt handed Review of Systems Const Denies chills, Denies daytime sleepiness, Denies fatigue, Denies fever(s), De nies frequent falls, Denies poor appetite, Denies snoring, Denies stops breathing during sleep, Denies weakness, Denies weight gain and Denies weight loss Eyes Denies loss of vision ENT Denies dizziness and Denies hearing loss Card Denies chest pain, Denies claudication, Denies leg edema, Denies lightheadedness, Denies palpitations, Denies dyspnea, Denies dyspnea on exertion and Denies orthopnea Resp Denies cough, Denies excessive phlegm production, Denies dyspnea, Denies dyspnea on exertion, Denies snoring and Denies wheezing GI Denies abdominal pain, Denies hematochezia, Denies change in bowel habits, Denies nausea and Denies vomiting Denies urinary frequency and Denies dysuria Musc Denies arthralgias, Denies muscle weakness, Denies numbness and Denies other (frequent falls) Skin/Breast Denies nail changes and Denies rash Neuro Denies Abnormal speech present, Denies dizziness, Denies frequent falls, Denies loss of vision, Denies memory loss, Denies numbness and Denies weakness Psych Denies depression and Denies memory loss Endo Denies fatigue and Denies palpitations Damian/Lymph Reports easy bruising and Reports other (anemia) Aller/Immun Denies wheezing Physical Exam Vital Signs: Last Vital Signs Pulse 81 02/24/24 13:57 BP 110/74 02/24/24 13:57 BMI result Body Mass Index 24.6 Const General: cooperative, comfortable, no acute distress, alert, awake and Physically active Nutritional Appearance: average body habitus and well nourished Orientation/consciousness: patient oriented x3 Limitations: no limitations HEENT Head: Yes normocephalic and Yes atraumatic Neck Neck: Yes trachea midline, Yes supple and Yes no JVD Carotids: no bruits Resp Effort & Inspection: normal respiratory effort Auscultation: clear to auscultation bilaterally Cardio Jugular venous distension: no JVD Palpation: normal PMI Rate: regular rate Rhythm: regular rhythm Heart sounds: S1 normal heart sound present, S2 normal heart sound present, no click, no gallops and no murmurs Peripheral pulses: Peripheral pulses 2+ throughout GI Auscultation: normal bowel sounds Skin General skin exam: no rashes or lesions noted Neuro General: patient oriented x3 and no focal motor deficits Speech: No Abnormal speech present Extrem General: Yes no clubbing, cyanosis or edema Psych Appearance: grossly normal Office Procedures EKG Details: EKG shows normal sinus rhythm with right bundle-branch block 77293-[id number], Complete Assessment & Plan Assessment & Plan (1) High cholesterol: Code(s): E78.00 - Pure hypercholesterolemia, unspecified Category: Medical Plan: Familial hypercholesterolemia most likely heterozygous with significantly elevated LDL without statin therapy. Statins are doing adequate job at this point time. She has additional risk factors of family history, diabetes as his hypertension. She is currently having symptoms with the atorvastatin but able to tolerated although would like to not have so much muscle cramps. I would consider referring her to Rheumatology to evaluate for musculoskeletal inflammatory disorders. They are limited treatment options for condition as she has already tried PCSK9 inhibitor therapy and had allergic reaction to it. She was tried other statin therapy. I discussed role of coenzyme Q10 in management of statin intolerance with muscle pain. She is willing to try this. I would start at 100-200 mg daily. If she continues to have symptoms related to statin intolerance with muscle discomfort would consider switching her atorvastatin to rosuvastatin on coenzyme Q10 as she continues to have symptoms consider switching her to pitavastatin. Target goal LDL less than 100 mg/dL although this may be a difficult target. We discussed limitations in medical therapy for her. Will follow up in the clinic if need be. Thank you for allowing me to partake in her care Coding Level of Care Code New Pt Level 3 (60873) Diagnoses High cholesterol E78.00 CPT Codes EKG - CPT: 32823-Laqhyoixluvngimeg, Complete ([id number])
[2024-02-24 13:57] VITALS: BP 110/74; PULSE 81; BMI 24.6
== END 2024-02-24 14:36 | disposition home or self-care (01) ==
PROVIDERS: PCP Internal Medicine; Visit Provider Internal Medicine Cardiovascular Disease
DX: E78.00 Pure hypercholesterolemia, unspecified (principal)
CPT/HCPCS: 93010; 99203

== ENCOUNTER → 2024-02-24 13:45 | Outpatient (BNVA) | payer OTHER, SELFPAY | PROVIDERS: PCP Internal Medicine; Visit Provider Internal Medicine Cardiovascular Disease | DX: I10 Essential (primary) hypertension (principal); E78.00 Pure hypercholesterolemia, unspecified; Z79.899 Other long term (current) drug therapy | CPT/HCPCS: 93005; 99202 ==

== ENCOUNTER 2024-12-11 08:09 | Outpatient (REF) | payer OTHER, SELFPAY ==
--- OUTSIDE RECORDS SUMMARY | 2024-12-11 08:14 | XMS_ITS | Patient Health Record ---
Author Organization [facility] Address [address] [place] [id number] Care Team Providers Care Info Specialist Name Role Phone Dewayne Ware Unavailable [phone] Reason For Referral No Information Plan Of Treatment No Information
[2024-12-11 11:31] LABS: MANUAL DIFF FLAG NO
[2024-12-11 11:48] LABS: Hematocrit 40.9 % (37.0-47.0); Hemoglobin 13.6 g/dl (12.0-16.0); Imm Gran Abs Auto 0.02 X10*3/uL (0.00-0.03); Imm Gran Pct Auto 0.3 % (0.0-0.4); Lymphocytes Absolute Auto 2.0 X10*3/uL (1.2-4.9); Mean Corpuscular HGB Conc 33.3 g/dl (31.0-35.0); Mean Corpuscular Hemoglobin 31.7 pg (27.0-33.0); Mean Corpuscular Volume 95.3 fL (80.0-98.0); NRBC Abs Auto 0.000 X10*3/uL (0.0-0.012); NRBC Pct Auto 0.0 /100WBC (0.0-0.2); Platelet Count 298 X10*3/uL (160-400); Red Blood Count 4.29 X10*6/uL (4.20-5.50); White Blood Count 6.3 X10*3/uL (4.8-10.8)
[2024-12-11 11:56] LABS: Alanine Aminotransferase 20 U/L (0-31); Albumin Level 4.1 g/dL (3.5-5.0); Alkaline Phosphatase 66 U/L (39-117); Anion Gap 10 (12-20); Aspartate Amino Transferase 22 U/L (5-31); Blood Urea Nitrogen 11 mg/dL (9-16); Calcium 9.0 mg/dL (8.4-10.2); Carbon Dioxide 27 mmol/L (22-29); Chloride 107 mmol/L (96-108); Cholesterol 224 mg/dL (<200); Estimated Glomerular Filt Rate > 60; HDL Cholesterol 54 mg/dL (>40); Potassium 4.0 mmol/L (3.3-5.1); Sodium 140 mmol/L (135-145); Total Protein 7.5 g/dL (6.5-8.0); Triglycerides 185 mg/dL (<150)
[2024-12-11 12:11] LABS: Microalbum/Creatinine Ratio Ur 14.2 ug/mg cr (<30)
[2024-12-11 12:27] LABS: Folate 11.9 ng/mL (> or = 4.0); Vitamin B12 502 pg/mL (200-900)
[2024-12-12 08:38] LABS: HIV Num 1 0.06 S/CO (0.00-0.99); ~HepC Num1 10.90 S/CO (0.00-0.79); ~Hepatitis C Antibody Reactive (Nonreactive)
[2024-12-16 12:19] LABS: HCV Log PCR <1.18 NOT DETECTED Log IU/mL (NOT DETECTED); HepC Viral Load <15 NOT DETECTED IU/mL (NOT DETECTED)
== END 2024-12-11 08:10 | disposition home or self-care (01) ==
LOC: HO.HHCL 08:09
PROVIDERS: PCP Internal Medicine; Visit Provider Internal Medicine
DX: E11.42 Type 2 diabetes mellitus with diabetic polyneuropathy (principal)
CPT/HCPCS: 36415; 80053; 80061; 82043; 82306; 82570; 82607; 82746; 84443; 85025; 86803; 87389; 87522

== ENCOUNTER 2025-02-25 11:41 | Outpatient (AMB) | payer OTHER, SELFPAY ==
--- NOTE | 2025-02-25 11:48 | MHC.OFFVIS ---
Vital Signs 02/25/25 11:52 Height 5 ft 2 in Weight 130 lb BMI 23.8 BP 117/73 Blood Pressure Location Lt brachial Position Sitting Pulse 88 Intake Visit Reasons: gerd Intake Note: Kalee presents in the offie as a follow up for GERD. CC: She states that she has GERD every day - she feels okay otherwise. Remote Broadcast Technician Required: No Allergies blue dye Allergy (Intermediate, Verified 02/25/25 11:52) Hives iodine Allergy (Unknown, Verified 02/25/25 11:52) unknow metformin (Janumet XR) Allergy (Unknown, Verified 02/25/25 11:52) hives sitagliptin (Janumet XR) Allergy (Unknown, Verified 02/25/25 11:52) hives Medication List - Last Reconciled 02/25/25 by ANKITA Hernandez amlodipine 5 mg PO DAILY blood sugar diagnostic ([email or web address] Verio test strips) As directed coenzyme Q10 300 mg PO DAILY gabapentin 300 mg PO TID lancets (FreeStyle Lancets) As directed lancets (ScriptRxTouch Delica Plus Lancet) As directed metformin 500 mg PO BID sennosides (Senna Laxative) 17.2 mg (2 x 8.6 mg) PO BEDTIME sitagliptin phosphate (Januvia) 100 mg PO DAILY timolol maleate 0.5% 1 drp ophthalmic (eye) QAM HPI HPI gerd: Details: Assessment & Plan (1) IBS (irritable colon syndrome): Code(s): K58.9 - Irritable bowel syndrome without diarrhea Category: Medical (2) GERD (gastroesophageal reflux disease): Comment: resolved with restoring bowel motility Code(s): K21.9 - Gastro-esophageal reflux disease without esophagitis Category: Medical Plan She fell in [place] and had a CT showing renal stones and adnexal cysts left>rt. Report is scanned into chart. She had been there to help her sister who was ill. She had severe right sided pain r/t a fall and she even had pain with a deep breath. She says that the renal stones and ovarian cysts have been there for a long time but she was worried about the pancreatic incidentaloma - which is non concerning. It really sounds like she had deep musculoskeletal injury like hematoma or muscle tears that would not be well appreciated on CT. She has an upcoming appt with cardiology in February for her significant FHX of cardiac disease and high cholesterol with statin intolerances. She continues on her senna with good control of her constipation. RoV 6 mos. TODAY'S VISIT [facility] Medical History Preop examination Hx of hepatitis C Encounter to discuss test results Encounter for well woman exam with routine gynecological exam High cholesterol Uterine fibroid Diabetes mellitus Pseudocyst of pancreas IBS (irritable colon syndrome) GERD (gastroesophageal reflux disease) Surgical History History of trigger finger History of esophagogastroduodenoscopy (EGD) Hx of colonoscopy Family History Father No problems noted. Mother No problems noted. Social History Household Members: Significant Other Housing: Homeless Housing Other:: recently seperated from [employer] and was kicked out of apartment Alcohol intake: current Alcohol intake frequency: does not drink Patient Tobacco Use Status: Never used Tobacco Current occupational status: disabled Current occupation: Rt handed Review of Systems Const Denies fatigue, Denies fever(s), Denies night sweats, Denies poor appetite and Denies weight loss ENT Reports Normal hearing present, Denies dental pain, Denies dysphagia, Denies hearing loss, Denies mouth pain, Denies odynophagia, Denies throat swelling, Denies tongue swelling and Reports other (Dentition adequate) Card Reports no additional complaints Resp Reports no additional complaints GI Details: Denies abdominal pain, Denies melena, Denies bloating, Denies hematochezia, Reports constipation, Denies GI cramping, Denies dysphagia, Denies excessive flatus, Denies early satiety, Denies heartburn, Denies diarrhea, Denies nausea, Denies odynophagia, Denies vomiting and Denies hematemesis Musc Reports muscle cramps Skin/Breast Denies pruritus, Denies lesions, Denies rash and Denies jaundice Neuro Reports Normal hearing present and Denies Abnormal speech present Endo Denies fatigue Aller/Immun Denies throat swelling and Denies tongue swelling Physical Exam Vital Signs: Last Vital Signs Pulse 88 02/25/25 11:52 BP 117/73 02/25/25 11:52 BMI result Body Mass Index 23.8 Const General: cooperative, no acute distress, well developed and well groomed Nutritional Appearance: average body habitus and well nourished Orientation/consciousness: oriented to person, oriented to place and oriented to time Limitations: language barrier HEENT Head: Yes normocephalic and Yes atraumatic Eyes General: appearance normal, both eyes and all related structures Pupils: Equal, round and reactive pupils present Neck Neck: Yes normal visual inspection and Yes no lymphadenopathy Thyroid: Thyroid normal Resp Effort & Inspection: normal respiratory effort and able to speak in complete sentences Auscultation: clear to auscultation bilaterally Cardio Rate: regular rate Rhythm: regular rhythm Heart sounds: Normal, physiologic split S2 sound present Peripheral pulses: radial pulses present and posterior tibial pulses present GI Inspection: No distended and No Abdominal panniculus present Palpation (GI): Soft to palpation, nontender, no guarding, not rigid and No hepatosplenomegaly present Percussion: Yes normal to percussion Auscultation: normal bowel sounds Rectal Exam - Female: deferred Skin General skin exam: no rashes or lesions noted, turgor normal, skin not dry, no jaundice, No spider nevi and no striae Rashes: no rashes Nails: normal Neuro General: oriented to person, oriented to place and oriented to time Cranial nerves: Yes Equal, round and reactive pupils present and Yes Normal hearing present Speech: No Abnormal speech present Extrem General: Yes normal to inspection, No clubbing, No cyanosis and No edema Psych Appearance: grossly normal and well kempt Mental Status: mental status grossly normal Speech and movement: Normal speech and movement present Affect: normal affect Attitude: cooperative Thought process: Normal thought process present and not confabulating Thought content: Normal thought content present Insight: Fair insight present (Psych) Judgement: Fair judgement present (Psych) Assessment & Plan Assessment & Plan (1) Constipation: Code(s): K59.00 - Constipation, unspecified Category: Medical (2) GERD (gastroesophageal reflux disease): Comment: resolved with restoring bowel motility Code(s): K21.9 - Gastro-esophageal reflux disease without esophagitis Category: Medical Plan SHE IS ON SENNA FOR HER CONSTIPATION She continues to do well on her senna. She saw Cardiology and while they did not restart her statin (she had severe statin myalgias from atorvastatin) they did advise her to go on coat enzyme Q10 which is helped her leg pain tremendously. Return office visit in 6 months Medications: New sennosides (Senna Laxative) 17.2 mg (2 x 8.6 mg) PO BEDTIME 60 tabs 6RF Coding Level of Care Code Est Pt Level 3 (87191) Diagnoses Constipation K59.00 GERD (gastroesophageal reflux disease) K21.9
[2025-02-25 11:52] VITALS: BP 117/73; PULSE 88; BMI 23.8
--- OUTSIDE RECORDS SUMMARY | 2025-02-25 16:33 | XMS_ITS | Encounter Summary ---
Author Organization [employer] Address [address] [place] [address] Care Team Providers Care Sap Trainer Name Role Phone Lashae Mcguire MD Primary Care Provide r Encounter Details Date Type Department Care Team ([facility] st Contact Info) Description 09/01/2024 Orders Only [facility] [address] [place] [address] ProviderFletcher MD Social History Tobacco Use Types Packs/Day Years Used Date Smoking Tobacco: Never Passive Smoke Exposure: Never Smokeless Tobacco: Never Alcohol Use Standard Drinks/Week Comments Not Currently 0 (1 standard drink = 0.6 oz pur e alcohol) Depression Answer Date Recorded Patient Health Questionnaire-9 Score 0 06/10/2024 Patient Health Questionnaire-9 Score 0 06/10/2024 Last PHQ-9: Questionnaire Data Not on file 0 06/10/2024 Housing Stability Answer Date Recorded What is your housing situation today? I have emily cabrales 04/16/[address] you li ve. Do you have problems with any of the following? None of the above 04/16/2024 Food Insecurity Answer Date Recorded Within the past 12 months, y ou worried that your food would run out before you got money to buy more: Never True 04/16/2024 Within the past 12 months,th e food you bought just didn't last and you didn't have enough money to get more: Never True Transportation Answer Date Recorded In the past 12 months, has l ack of transportation kept you from medical appts, meetings, work or from getting things needed for daily living? No 04/16/2024 Utilities Answer Date Recorded In the past 12 months, has t he electric, gas, oil or water company threatened to shut off services in your home? No 04/16/2024 Depression Answer Date Recorded Patient Health Questionnaire-2 Score 0 06/10/2024 Internet Access Answer Date Recorded Internet Access Q1 No 06/04/2024 Internet Access Q2 I cannot afford it 06/04/2024 Comments Unknown Sex and Gender Information Value Date Recorded Sex Assigned at Female 04/02/2022 10:16 AM EDT Legal Sex Female 10:16 AM EDT Gender Identity Female 04/02/2022 10:16 AM EDT Sexual Orientation Straight 04/02/2022 10 :16 AM EDT documented as of this encounter Plan of Treatment Upcoming Encounters Date Type Department Care Team (Late st Contact Info) Description 04/02/2025 1:00 PM EDT Office Visit [facility] [address], [place] [id number] Cem, Megan, OD [address] [place] [address] documented as of this encounter Procedures Procedure Name Priority Date/Time Associated Diagnosis Comments COLONOSCOPY Routine 04/05/2022 10:22 AM EDT documented in this encounter Results * Hm Colonoscopy (04/05/2022 10:22 AM EDT) Colonoscopy Normal Normal Narrative Sally Bonds - 04/05/2022 10:22 AM EDT Repeat colonoscopy in 10 years for colorectal cancer screening see the external hospital admission note on 04/05/2022 Historical Provider HEALTH MAINTENANCE Edited Result - Final documented in this encounter Visit Diagnoses Not on filedocumented in this encounter Additional Health Concerns Assessment Noted Time PHQ-9 Depression Total Score: 0 06/10/19 25 12:05 PM EST documented as of this encounter Care Teams Sap Trainer Relationship Specialty Start Date End Date Lashae Mcguire MD [address] [place] [address] PCP - General Family Medicine 09/30/18 documented as of this encounter
--- OUTSIDE RECORDS SUMMARY | 2025-02-25 16:33 | XMS_ITS | Clinical Summary ---
Author Organization [facility] [employer] Address [address] [place] [address] 7 [place] [address] Care Team Providers Care [employer] Laboratory Technician Name Role Phone Lashae Mcguire MD Primary Care Provide r Allergies Active Allergy Reactions Criticality Noted Date Comments Alirocumab Headache 11/16/2016 Other reaction(s): OTHER insomnia Baclofen Rash Low 07/24/2024 Iodine 07/24/2024 Statins 11/16/2016 Other reaction(s): Myalgia and Joint Pain Iodoquinol 01/23/2024 Medications cholecalciferol (Vitamin D-3) 50 MCG (1999) tabletIndications :Prediabetes Take 1 tablet by mouth once daily 90 tablet 1 02/12/20 23 Active amLODIPine-atorva statin (Caduet) 10-10 MG tablet Take 1 tablet by mouth in the morning. Active ibuprofen 600 MG tablet TAKE 1 TABLET BY MOUTH THREE TIMES DAILY WITH MEALS FOR PAIN. MAX 2400 MG DAILY 02/14/20 23 Active senna (Senokot) 8.6 MG tablet TAKE 3 TABLETS BY MOUTH AT BEDTIME 02/22/20 23 Active triamcinolone (Kenalog) 0.1 % creamIndications: Rash Apply topically if needed in the morning and at bedtime (pain and swelling). 80 g 05/16/20 23 Active melatonin 5 MG tabletIndications :Primary insomnia Take 1 tablet (5 mg) by mouth at bedtime. 30 tablet 06/26/19 24 Active Lancets (OneTouch Delica Plus [id number]) miscIndications:T ype 2 diabetes mellitus without complication, without long-term current use of insulin ([facility]) Use to test blood sugar twice daily 100 each 11 07/01/19 24 Active acetaminophen (Tylenol 8 Hour) 650 MG ER tablet 07/08/19 24 Active latanoprost (Xalatan) 0.005 % ophthalmic solution INSTILL 1 DROP IN BOTH EYES AT BEDTIME 2.5 mL 5 09/30/19 24 Active Alcohol Swabs 70 % padsIndications:T ype 2 diabetes mellitus with diabetic polyneuropathy, without long-term current use of insulin ([facility]) Use to test blood sugar 2 times daily 100 each 3 01/23/20 24 Active Blood Glucose Monitoring Suppl (Voltea Lite) w/Device kitIndications:Ty pe 2 diabetes mellitus with diabetic polyneuropathy, without long-term current use of insulin ([facility]) Use to test blood sugar 2 times daily 1 kit 01/23/20 24 Active gabapentin (Neurontin) 300 MG capsuleIndication s:Bilateral leg pain Take 1 capsule (300 mg) by mouth 3 times daily. TAKE 1 CAPSULE(300 MG) BY MOUTH THREE TIMES DAILY 90 capsule 2 05/22/20 24 Active pravastatin (Pravachol) 40 MG tabletIndications :Type 2 diabetes mellitus with diabetic polyneuropathy, without long-term current use of insulin ([facility]),Hyperli pidemia, unspecified hyperlipidemia type Take 1 tablet (40 mg) by mouth Once per day. 30 tablet 06/10/192025 Active oxybutynin XL (Ditropan XL) 5 MG 24 hr tabletIndications :Nycturia Take 1 tablet (5 mg) by mouth Once per day. Do not crush, chew, or split. 30 tablet 1 06/10/19 25 2025 Active Diclofenac Sodium 1 % gelIndications:Mu scle pain Place 1 each on the skin every 12 (twelve) hours if needed (apply if needed on affected area). APPLY 2 GRAMS TOPICALLY TO THE AFFECTED AREA TWICE DAILY 100 g 06/10/19 Active atorvastatin (Lipitor) 40 MG tablet Take 1 tablet (40 mg) by mouth Once per day. 90 tablet 3 06/30/19 25 2025 Active gabapentin (Neurontin) 300 MG capsule Take 1 capsule (300 mg) by mouth 3 times daily. 270 capsule 3 06/30/19 25 2025 Active timolol (Timoptic) 0.5 % ophthalmic solution Administer 1 drop into both eyes in the morning. 5 mL 6 07/02/19 25 2025 Active Januvia 100 MG tabletIndications :Type 2 diabetes mellitus with hyperlipidemia (CMS/HCC) ([facility]) TAKE 1 TABLET(100 MG) BY MOUTH IN THE MORNING 90 tablet 1 08/22/19 25 Active amLODIPine (Norvasc) 5 MG tabletIndications :Primary hypertension TAKE 1 TABLET(5 MG) BY MOUTH DAILY IN THE MORNING 90 tablet 1 08/22/19 25 Active glucose blood (FREESTYLE LITE) test stripIndications: Type 2 diabetes mellitus with diabetic polyneuropathy, without long-term current use of insulin ([facility]) DIRECTED TO TEST BLOOD SUGAR TWICE DAILY 100 strip 11 11/03/19 25 Active FreeStyle lancetsIndication s:Type 2 diabetes mellitus with diabetic polyneuropathy, without long-term current use of insulin ([facility]) DIRECTED TO TEST BLOOD SUGAR TWICE DAILY 100 each 11 11/03/19 25 Active loratadine (Claritin) 10 MG tabletIndications :Allergy, initial encounter Take 1 tablet (10 mg) by mouth Once per day. 30 tablet 2 12/10/19 25 2025 Active metFORMIN (Glucophage) 500 MG tabletIndications :Type 2 diabetes mellitus with hyperlipidemia (CMS/HCC) ([facility]) TAKE 1 TABLET BY MOUTH TWICE DAILY WITH THE MORNING AND EVENING MEAL 180 tablet 1 02/25/20 25 Active metFORMIN (Glucophage) 500 MG tabletIndications :Type 2 diabetes mellitus with hyperlipidemia (CMS/HCC) ([facility]) TAKE 1 TABLET BY MOUTH TWICE DAILY WITH THE MORNING AND EVENING MEAL 180 tablet 1 08/22/19 25 2024 Discontinued Active Problems Problem Noted Date Diagnosed Date Allergies 12/09/2024 Neuropathy 12/09/2024 Assessment & Plan (12/09/2024 12:15 PM EDT): Continue with gabapentin 300 mg every 8 hours Nycturia 06/10/2024 Assessment & Plan (06/10/2024 4:29 PM EST): [place] of oxybutynin will be prescribe I will refer her to urology Encounter for screening mamm ogram for malignant neoplasm of breast 01/23/2024 Rash 05/16/2023 Primary insomnia 05/16/2023 Assessment & Plan (05/16/2023 2:37 PM EST): Sleep hygiene counseling done I will start her on melatonin Prediabetes 02/11/2023 Trigger ring finger of right hand 02/06/2023 Bilateral leg pain 12/25/2022 Assessment & Plan (12/25/2022 1:53 PM EDT): Vascular insufficiency, neuropathy? [place] of gabapentin today doppler venous and arterial F/u 6 weeks Muscle pain 12/19/2022 Primary hypertension 07/18/2022 Assessment & Plan (06/10/2024 4:22 PM EST): I advised: - Aerobic exercise to reduce BP. Initial goal of 30 min walk 3-5x/week. Increase as tolerated. - low-sodium diet (goal: <2g/day) and heart healthy diet such as DASH to reduce BP and prevent ASCVD. - Home BP monitoring 1-2 x day with goal of <140/90. - Seek immediate medical attention for chest pain, palpitations, SOB, syncope, or sudden changes in mental status. - Do not change or discontinue current prescriptions without first consulting health care provider Assessment & Plan (01/23/2024 11:15 AM EDT): - I will re-initiate her atorvastatin 40mg daily, patient tells me she thinks her leg and joint pain is not related to statins I advise: - Aerobic exercise to reduce BP. Initial goal of 30 min walk 3-5x/week. Increase as tolerated. - low-sodium diet (goal: <2g/day) and heart healthy diet such as DASH to reduce BP and prevent ASCVD. - Home BP monitoring 1-2 x day with goal of <140/90. - Seek immediate medical attention for chest pain, palpitations, SOB, syncope, or sudden changes in mental status. - Do not change or discontinue current prescriptions without first consulting health care provider Assessment & Plan (05/16/2023 2:37 PM EST): - Aerobic exercise to reduce BP. Initial goal of 30 min walk 3-5x/week. Increase as tolerated. - low-sodium diet (goal: <2g/day) and heart healthy diet such as DASH to reduce BP and prevent ASCVD. - Home BP monitoring 1-2 x day with goal of <140/90. - Seek immediate medical attention for chest pain, palpitations, SOB, syncope, or sudden changes in mental status. - Do not change or discontinue current prescriptions without first consulting health care provider Assessment & Plan (12/25/2022 1:51 PM EDT): - Aerobic exercise to reduce BP. Initial goal of 30 min walk 3-5x/week. Increase as tolerated. - low-sodium diet (goal: <2g/day) and heart healthy diet such as DASH to reduce BP and prevent ASCVD. - Home BP monitoring 1-2 x day with goal of <140/90. - Seek immediate medical attention for chest pain, palpitations, SOB, syncope, or sudden changes in mental status. - Do not change or discontinue current prescriptions without first consulting health care provider Disorder of rotator cuff 07/18/2022 Hx of splenectomy 12/06/2016 Overview (07/18/2022): 2008 Diabetes mellitus 11/16/2016 Assessment & Plan (12/09/2024 12:15 PM EDT): Diabetes is: controlled - Lab Results Component Value Date HGBA1C 5.9 (A) 12/09/2024 HGBA1C 6.1 (A) 06/10/2024 HGBA1C 6.4 (A) 01/23/2024 - Lab Results Component Value Date MICROALBUR 10.0 01/24/2024 CREATININE 0.69 06/13/2024 -Changes: None - Diabetic eye exam: Up-to-date - Diabetic foot exam: Pending - Continue lifestyle modifications - Continue current medications - Follow up: 3 months Assessment & Plan (06/10/2024 4:23 PM EST): Diabetes is: controlled - Lab Results Component Value Date HGBA1C 6.1 (A) 06/10/2024 HGBA1C 6.4 (A) 01/23/2024 HGBA1C 5.7 05/16/2023 - Lab Results Component Value Date MICROALBUR 10.0 01/24/2024 CREATININE 0.68 01/24/2024 -Changes: none - Diabetic eye exam:up to date - Diabetic foot exam:pending - Continue lifestyle modifications - Continue current medications - Follow up: 3 months Assessment & Plan (01/23/2024 11:16 AM EDT): Diabetes is: controlled - Lab Results Component Value Date HGBA1C 6.4 (A) 01/23/2024 HGBA1C 5.7 05/16/2023 HGBA1C 5.3 02/12/2023 - Lab Results Component Value Date MICROALBUR 0.8 03/23/2022 CREATININE 0.66 02/15/2023 -Changes: I prescribed for patient a glucometer she claims she thinks the one she has is malfunctioning and she has not being checking her glucose properly - Diabetic eye exam:up to date - Diabetic foot exam: referral done - Continue lifestyle modifications - Continue current medications - Follow up: 3 months Assessment & Plan (05/16/2023 2:38 PM EST): - Lab Results Component Value Date HGBA1C 5.7 05/16/2023 HGBA1C 5.3 02/12/2023 HGBA1C 6.1 (A) 12/25/2022 - Lab Results Component Value Date MICROALBUR 0.8 03/23/2022 CREATININE 0.66 02/15/2023 - - Continue lifestyle modifications - Continue current medications - Assessment & Plan (12/25/2022 1:54 PM EDT): Lab Results Component Value Date HGBA1C 6.1 (A) 12/25/2022 HGBA1C 5.9 (H) 07/19/2022 - Lab Results Component Value Date MICROALBUR 0.8 03/23/2022 CREATININE 0.51 07/19/2022 - Continue lifestyle modifications - Continue current medications Fibromyalgia 11/16/2016 Gastritis 11/16/2016 Overview (02/14/2023): F/u [facility] at [facility] H/o H. Pylori treatment Hyperlipidemia 11/16/2016 Assessment & Plan (06/10/2024 4:28 PM EST): I will discontinue her atorvastatin and start patient on pravastatin to see if his LE pain will get better Assessment & Plan (12/25/2022 1:54 PM EDT): Lipid panel to be check on next appointment Major depression 11/16/2016 Assessment & Plan (12/25/2022 1:56 PM EDT): Patient should start with a therapist and if necessary to be refer to psychiatrist I will not initiate medications at this time for now Migraines 11/16/2016 Assessment & Plan (02/11/2023 1:04 PM EDT): I advise to avoid migraine triggers like red wine, chocolate, cheese, strong perfumes Anxiety 11/16/2016 Overview (02/14/2023): F/u [facility] at [facility] at [facility] Resolved Problems Problem Noted Date Diagnosed Date Resolved Date Elevated blood-pressure read ing without diagnosis of hypertension 07/18/2022 07/18/2022 Encounters Date Type Department Care Team Description 02/25/2025 Refill [facility] [address] [place], [place] [phone] Lashae Mcguire MD Type 2 diabetes mellitus with hyperlipidemia ([facility]/HCC) ([facility]) 02/24/2025 Refill [facility] [address] [place], [place] [phone] Lashae Mcguire MD Type 2 diabetes mellitus with hyperlipidemia (CMS/HCC) ([facility]) 12/31/2024 10:30 AM EDT Office Visit [facility] [address] [place], [place] [phone] Cem, Lesli, OD Primary open angle glaucoma (POAG) of both eyes, mild stage (Primary Dx); Dry eyes 12/31/2024 Travel 12/11/2024 Orders Only [facility] [address] [place] [phone] Lashae Mcguire MD 12/09/2024 11:15 AM EDT Office Visit [address] [address] Lashae Mcguire MD Neuropathy (Primary Dx); Type 2 diabetes mellitus with diabetic polyneuropathy, without long-term current use of insulin ([facility]); Allergy, initial encounter 12/09/2024 Travel 12/08/[address] [address] Lashae Mcguire MD chart prep 11/30/2024 Patient Outreach [address] [address] Lashae Mcguire MD Pre-visit Planning ([facility] screening completed on 06/04/2024) 11/30/[address] [address] Lashae Mcguire MD Primary hypertension from Last 3 Months Immunizations Immunization Administration Dates Next Due Hep B, adult 04/03/2009,11/18/2008,10/19/2008 Influenza injectable quadriv alent preservative free 03/02/2021 Pfizer Covid-19 Vaccine 12+ 04/19/2021 Pneumococcal Conjugate PCV 20 01/23/2024 Family History Medical History Relation Name Comments Hypertension Mother Relation Name Status Comments Mother Social History Tobacco Use Types Packs/Day Years Used Date Smoking Tobacco: Never Passive Smoke Exposure: Never Smokeless Tobacco: Never Tobacco Cessation:Counseling Given: Not Answered Alcohol Use Standard Drinks/Week Comments Not Currently 0 (1 standard drink = 0.6 oz pur e alcohol) Depression Answer Date Recorded Patient Health Questionnaire-9 Score 12 12/09/2024 Patient Health Questionnaire-9 Score 12 12/09/2024 Last PHQ-9: Questionnaire Data Not on file 0 12/09/2024 Housing Stability Answer Date Recorded What is [...] Answer Date Recorded Patient Health Questionnaire-2 Score 3 12/09/2024 Internet Access Answer Date Recorded Internet Access Q1 No 06/04/2024 Internet Access Q2 I cannot afford it 06/04/2024 Comments Unknown Sex and Gender Information Value Date Recorded Sex Assigned at Female 04/02/2022 10:16 AM EDT Legal Sex Female 10:16 AM EDT Gender Identity Female 04/02/2022 10:16 AM EDT Sexual Orientation Straight 04/02/2022 10 :16 AM EDT Last Filed Vital Signs Vital Sign Reading Time Taken Comments Blood Pressure 139/82 12/09/2024 10:52 AM EDT Pulse 71 12/09/2024 10:52 AM EDT Temperature 37.3 C (99.1 F) 12/09/2024 10:52 AM EDT Respiratory Rate 16 12/09/2024 10:52 AM EDT Oxygen Saturation 99% 12/09/2024 10:52 AM EDT Inhaled Oxygen Concentration - - Weight 59.2 kg (130 lb 9.6 oz) 12/09/2024 10:52 AM EDT Height 157.5 cm (5' 2 ) 12/09/2024 10:52 AM EDT Body Mass Index 23.89 12/09/2024 10:52 AM EDT Plan of Treatment Upcoming Encounters Date Type Department Care Team (Late st Contact Info) Description 04/02/2025 1:00 PM EDT Office Visit [facility] [address] [place] [address] Lesli Priest, OD [address] [facility] [place] [address] Health Maintenance Due Date Last Done Comments CT Colonography 1958 FIT DNA/Cologuard 1958 FIT 1958 FOBT 1958 Sigmoidoscopy 1958 Diabetes: Foot Exam 1968 Meningococcal B Vaccine (1 of 5 - Increased Risk) 1968 DTaP/Tdap/Td Vaccines (1 - Tdap) 1977 Meningococcal Vaccine (2 - Risk 2-dose series) 03/21/2008 01/25/2008 Zoster Vaccines (1 of 2) 2008 RSV Patients and Patients Aged 60 years or older (1 - Risk 60-74 years 1-dose series) 2018 Mammogram 04/05/2023 04/05/2021 COVID-19 Vaccine (2 - season) 2025 04/19/2021 Influenza Vaccine (#1) 2025 03/02/2021, 2008 HPV/Cotest 03/30/2025 03/30/2020 Pap Smear 03/30/2025 03/30/2020 SDOH Screening 06/04/2025 06/04/2024 Depression Monitoring 06/11/2025 12/09/2024, 025 Diabetes: Hemoglobin A1C 06/11/2025 025, 06/10/2024, 01/23/2024, Additional history exists Eye Exam 07/02/2025 07/02/2024, 06/05, 07/02/2024, Additional history exists Alcohol/Substance Use Screening 12/09/2025 12/09/2024 Diabetes: Urine Protein Screening 12/11/2025 12/11/2024, 01/24/2024, 07/19/2022, Additional history exists Lipid Panel 12/11/2025 12/11/2024, 06/03, 01/24/2024, Additional history exists Tobacco Screening 01/16/2026 01/16/2025 Colonoscopy 04/05/2032 04/05/2022 Colorectal Cancer Screening 04/05/2032 HIB Vaccines Completed 01/25/2008 Hepatitis B Vaccines Completed 04/03/2009, 11/18/2008, 10/19/2008 Pneumococcal Vaccine: 50+ Years Completed 01/23/2024, 01/12/2013, 07/13/2008 Hepatitis C Screening Completed 12/11/2024 , 12/11/2024, 04/10/2021 HPV Vaccines Aged Out No longer eligi ble based on patient's age to complete this topic Hepatitis A Vaccines Aged Out No long er eligible based on patient's age to complete this topic IPV Vaccines Aged Out No longer eligi ble based on patient's age to complete this topic RSV under 20 months Aged Out No longe r eligible based on patient's age to complete this topic Rotavirus Vaccines Aged Out No longer eligible based on patient's age to complete this topic Procedures Procedure Name Priority Date/Time Associated Diagnosis Comments AUTOMATED VISUAL FIELD, EXTENDED - OU - BOTH EYES Routine 12/31/2024 10:30 AM EDT Primary open angle glaucoma (POAG) of both eyes, mild stage HEPATITIS C VIRAL RNA, QUANTITATIVE, REAL-TIME PCR Routine 12/11/2024 8:17 AM EDT VITAMIN B12/FOLATE, SERUM PANEL Routine 12/11/2024 8:17 AM EDT Type 2 diabetes mellitus with diabetic polyneuropathy, without long-term current use of insulin ([facility]/HCC) ALBUMIN, RANDOM URINE W/CREATININE Routine 12/11/2024 8:17 AM EDT Type 2 diabetes mellitus with diabetic polyneuropathy, without long-term current use of insulin (CMS/HCC) TSH W/REFLEX TO FT4 Routine 12/11/2024 8 :17 AM EDT Type 2 diabetes mellitus with diabetic polyneuropathy, without long-term current use of insulin (CMS/HCC) VITAMIN D,25-OH,TOTAL,IA Routine 12/11/2024 8:17 AM EDT Type 2 diabetes mellitus with diabetic polyneuropathy, without long-term current use of insulin (CMS/HCC) LIPID PANEL, STANDARD Routine 12/11/2024 8:17 AM EDT Type 2 diabetes mellitus with diabetic polyneuropathy, without long-term current use of insulin (CMS/HCC) HEPATITIS C AB W/REFL TO HCV RNA, QN, PCR Routine 12/11/2024 8:17 AM EDT Type 2 diabetes mellitus with diabetic polyneuropathy, without long-term current use of insulin (CMS/HCC) HIV 1/2 ANTIGEN/ANTIBODY, FOURTH GENERATION W/RFL Routine 12/11/2024 8:17 AM EDT Type 2 diabetes mellitus with diabetic polyneuropathy, without long-term current use of insulin (CMS/HCC) COMPREHENSIVE METABOLIC PANEL Routine 12/11/2024 8:17 AM EDT Type 2 diabetes mellitus with diabetic polyneuropathy, without long-term current use of insulin (CMS/HCC) CBC WITH AUTO DIFFERENTIAL Routine 12/11/2024 8:17 AM EDT Type 2 diabetes mellitus with diabetic polyneuropathy, without long-term current use of insulin (CMS/HCC) POCT GLYCATED HEMOGLOBIN, TOTAL Routine 12/09/2024 10:55 AM EDT Type 2 diabetes mellitus with diabetic polyneuropathy, without long-term current use of insulin (CMS/HCC) POCT GLUCOSE Routine 12/09/2024 10:54 AM EDT Type 2 diabetes mellitus with diabetic polyneuropathy, without long-term current use of insulin (CMS/HCC) HM COLONOSCOPY Routine 04/05/2022 10:22 AM EDT MAMMOGRAM GENERIC Routine 04/05/2021 3:1 5 PM EDT ZZZ HISTORICAL HPV DNA, HIGH RISK, CERVICAL Routine 03/30/2020 3:54 PM EDT THINPREP IMAGING SYSTEM PAP Routine 03/30/2020 3:54 PM EDT from Last 3 Months or Most Recently Relevant to Health Maintenance Results * Automated Visual Field, Extended - OU - Both Eyes (12/31/2024 10:30 AM EDT) Lesli Talavera, OD - 01/15/2025 3:38 PM EDT VISUAL FIELD INTERPRETATION Visual Field Interpretation Test Details: G P Pulsar/200/TOP Reliability Indices: False positive errors OD: 0/7 OS: 0/7 False negative errors OD: 0/7 OS: 0/7 Statistical Indices: MS [src]: OD: 21.6 OS: 20.7 MD [< 2.0 src]: OD: -0.2 OS: 0.7 sLV [< 2.5 src]: OD: 1.3 OS: 1.9 Impression: Reason for testing: Primary Open Angle Glaucoma (POAG) both eyes Test Reliability: Good reliability in both eyes. No false negatives/positives Impression: Right eye (OD): No visual field defects present. Left eye (OS): 1-2 nasal defects of various depths. Progression: Right eye (OD): Stable to 05/2023 visual field. Left eye (OS): New defects present today that were not on 05/2023 visual field. Management Plan: Minimal change in the left eye that is not very concerning today. Patient will continue Timolol 0.5% drops in the morning in both eyes. Will monitor intraocular pressure (IOP) in 3 months. Lesli Priest OD OPHTH VISUAL FIELD Final Resu lt * Vitamin D, 25-Hydroxy, Total, Immunoassay (12/11/2024 8:17 AM EDT) Vitamin D 25-OH Total 32.8 >30 ng/mL [facility] Comment: Health Based Reference Values*< 20 ng/mL [id number] ng/mL Insufficient> 30 ng/mL Sufficient*Rosy ALSTON. N Engl J Med. 2007;357:266-280There is no well-established upper level of normal vitamin Dlevels. Some laboratories use 50 ng/mL as an upper limit ofnormal. However, toxicity is patient-dependent and may occurat any level. Careful correlation with the patient'spresentation is necessary and, if there is concern forvitamin D toxicity, treatment should be consideredirrespective of the serum level.Care must be taken in interpreting Vitamin D results fromdifferent laboratories and methodologies. Published datademonstrated that results from patients undergoinghemodialysis may show a negative bias when tested withvarious automated 25-OH vitamin D assays when compared toLC-MS/MS.When testing samples from patients whose predominant form ofVitamin D is Vitamin D2, such as patients receiving VitaminD2 supplementation, results that are subtherapeutic shouldbe confirmed with another method such as LC-MS/MS. Blood Venous blood specimen / Unknown 12/11/2024 8:17 AM EDT 12/11/2024 11:19 AM EDT us Lashae Payton MD LAB BLOOD ORDERABLES Final Result Performing Organization Address [facility]/ZIP Co de Phone Number [facility] [address] [place] [phone] * Vitamin B12/Folate, Serum Panel (12/11/2024 8:17 AM EDT) Vitamin B12 502 200 - 900 pg/mL [facility] Comment:NORMAL 200-900 PG/ML INDETERMINATE 160-199 PG/ML DEFICIENT < 160 PG/ML Folate 11.9 > or = 4.0 ng/mL [facility] Comment:Reference Values:> o r = 4.0 ng/mL< 4.0 ng/mL suggests folate deficiency Methotrexate, aminopterin and folinic acid(leucovorin) are chemotherapeutic agents whose molecularstructures are similar to folate; therefore, the Architectfolate assay cannot be used for patients using these drugs. Blood Venous blood specimen / Unknown 12/11/2024 8:17 AM EDT 12/11/2024 11:19 AM EDT us Lashae Payton MD LAB BLOOD ORDERABLES Final Result Performing Organization Address [facility]/ZIP Co de Phone Number [facility] [address] [place] [phone] * TSH with Reflex to Free T4 (12/11/2024 8:17 AM EDT) Pathologist [facility] TSH reflex Free T4 2.55 0.32 - 4.0 uIU/mL [facility] Blood Venous blood specimen / Unknown 12/11/2024 8:17 AM EDT 12/11/2024 11:19 AM EDT Lashae Payton MD LAB BLOOD ORDERABLES Final Result Performing Organization Address [facility]/ZIP Co de Phone Number [facility] [address] [place] [address] [phone] * Hepatitis C Viral RNA, Quantitative, Real-Time PCR (12/11/2024 8:17 AM EDT) [facility] Hepatitis C Viral Load <15 NOT DETECTED NOT DETECTED IU/mL [facility] HCV Log PCR <1.18 NOT DETECTED NOT DETECTED Log IU/mL [facility] Comment:For additional infor mation, please refer [email or web address](This link is being provided for informational/educational purposes only.)THIS TEST WAS PERFORMED AT:[employer] [place] [phone] WHEELER MD 12/11/2024 8:17 AM EDT 12/14/2024 3:05 PM EDT Lashae Payton MD LAB BLOOD ORDERABLES Final Result Performing Organization Address [facility]/ZIP Co de Phone Number [facility] [address] [place] [address] [phone] * Albumin, Random Urine W/Creatinine (12/11/2024 8:17 AM EDT) Pathologist [facility] Creatinine, Urine 126.37 mg/dL [facility] Microalbumin Urine 18.0 mg/L [facility] Microalbum Creatinine Ratio Ur 14.2 <30 ug/mg cr [facility] Comment:Albumin/Creatinine R atio Reference Ranges: Normal: < 30 ug/mg creatinine Microalbuminuria: 30 - 300 ug/mg creatinineClinical Albuminuria: > 300 ug/mg creatinine Urine (Urine, Random) 12/11/2024 8:17 AM EDT 12/11/2024 11:11 AM EDT Lashae Payton MD LAB URINE ORDERABLES Final Result [facility] [address] [place] [phone] * CBC auto differential (12/11/2024 8:17 AM EDT) White Blood Count 6.3 4.8 - 10.8 X10*3/uL [facility] Red Blood Count 4.29 4.20 - 5.50 X10*6/uL [facility] Hemoglobin 13.6 12.0 - 16.0 g/dl [facility] Hematocrit 40.9 37.0 - 47.0 % [facility] Mean Corpuscular Volume 95.3 80.0 - 98.0 fL [facility] Mean Corpuscular Hemoglobin 31.7 27.0 - 33.0 pg [facility] Mean Corpuscular HGB Conc 33.3 31.0 - 35.0 g/dl [facility] Red Cell Distribution Width 14.6 11.0 - 16.0 % [facility] Platelet Count 298 160 - 400 X10*3/uL [facility] Mean Platelet Volume 10.9 9.4 - 12.3 fL [facility] Neutrophils Percent Auto 55.7 45 - 73 % [facility] Imm Gran Pct Auto 0.3 0.0 - 0.4 % [facility] Lymphocytes Percent Auto 32.2 20 - 40 % [facility] Monocytes Percent Auto 7.6 2 - 11 % [facility] Eosinophils Percent Auto 3.3 0 - 4 % [facility] Basophils Percent Auto 0.9 0 - 2 % [facility] NRBC Pct Auto 0.0 0.0 - 0.2 /100WBC [facility] Neutrophils Absolute Auto 3.5 2.0 - 8.3 x10*3/uL [facility] Imm Gran Abs Auto 0.02 0.00 - 0.03 X10*3/uL [facility] Lymphocytes Absolute Auto 2.0 1.2 - 4.9 X10*3/uL [facility] Monocytes Absolute Auto 0.5 0.1 - 1.2 X10*3/uL [facility] Eosinophils Absolute Auto 0.2 0.0 - 0.4 X10*3/uL [facility] Basophils Absolute Auto 0.1 0.0 - 0.2 X10*3/uL [facility] NRBC Abs Auto 0.000 0.0 - 0.012 X10*3/uL [facility] Blood Venous blood specimen / Unknown 12/11/2024 8:17 AM EDT 12/11/2024 11:19 AM EDT us Lashae Payton MD LAB BLOOD ORDERABLES Final Result Performing Organization Address [facility]/ZIP Co de Phone Number [facility] [address] [place] [phone] * (ABNORMAL) Hepatitis C Antibody with Reflex to HCV, RNA, Quantitative, Real- Time PCR (12/11/2024 8:17 AM EDT) Hepatitis C Antibody Reactive( A) Nonreactive [facility] Comment:Presumptive evidence of antibodies to HCV. Blood Venous blood specimen / Unknown 12/11/2024 8:17 AM EDT 12/11/2024 11:19 AM EDT us Lashae Payton MD LAB BLOOD ORDERABLES Final Result Performing Organization Address [facility]/ZIP Co de Phone Number [facility] [address] [place] [phone] * HIV-1/2 Antigen and Antibodies, Fourth Generation, with Reflexes (12/11/2024 8:17 AM EDT) HIV AB/AG Nonreactive Nonreactive [facility] Comment:HIV-1 p24 Ag and/or HIV-1/HIV-2 Ab not detected.A test result that is nonreactive does not exclude thepossibility of exposure to or infection with HIV-1 and/orHIV-2. Nonreactive results in this assay for individualswith prior exposure to HIV-1 and/or HIV-2 may be due toantigen and antibody levels that are below the limit ofdetection of this assay.The [employer] HIV Ag/Ab Combo assay result andsupplemental assay results should be interpreted inconjunction with the patient's clinical presentation,history and other laboratory results. If the results areinconsistent with clinical evidence, additional testing issuggested to confirm the result. Blood Venous blood specimen / Unknown 12/11/2024 8:17 AM EDT 12/11/2024 11:19 AM EDT us Lashae Payton MD LAB BLOOD ORDERABLES Final Result [facility] [address] [place] [phone] * (ABNORMAL) Lipid Panel, Standard (12/11/2024 8:17 AM EDT) Triglycerides 185(H) <150 mg/dL [facility] Comment:Desirable Triglyceri de: less than 150 mg/dLBorderline High Triglyceride 150-199 mg/dLHigh Triglyceride: 200-499 mg/dLVery High Triglyceride: greater than or equal to 5OO mg/dL Cholesterol 224(H) <200 mg/dL [facility] Comment:Desirable Cholestero l: less than 200 mg/dLBorderline High Cholesterol: 200-239 mg/dLHigh Cholesterol: greater than 239 mg/dL LDL Cholesterol Calculated 133(H) <100 mg/dL [facility] Comment:Desirable LDL: less than 100 mg/dLNear Optimal/Above Optimal LDL: 110- 129 mg/dLBorderline High LDL: 130-159 mg/dLHigh LDL: 160-189 mg/dLVery High LDL: greater than or equal to 190 mg/dL HDL Cholesterol 54 >40 mg/dL [facility] Comment:Desirable HDL: great er than 40 mg/dL Note: This HDL assay may give artificially low results in patients with liver disease. Blood Venous blood specimen / Unknown 12/11/2024 8:17 AM EDT 12/11/2024 11:19 AM EDT us Lashae Payton MD LAB BLOOD ORDERABLES Final Result [facility] [address] [place] [phone] * (ABNORMAL) Comprehensive Metabolic Panel (12/11/2024 8:17 AM EDT) Sodium 140 135 - 145 mmol/L [facility] Potassium 4.0 3.3 - 5.1 mmol/L [facility] Chloride 107 96 - 108 mmol/L [facility] Carbon Dioxide 27 22 - 29 mmol/L [facility] Anion Gap 10(L) 12 - 20 [facility] Urea Nitrogen (BUN) 11 9 - 16 mg/dL [facility] Creatinine, Serum 0.60 0.5 - 1.4 mg/dL [facility] Estimated Glomerular Filt Rate >60 [facility] Comment:Chronic Kidney Disea se: Estimated GFR < 60 mL/min/1.35g9Hbdxye Kidney Disease: Estimated GFR < 15 mL/min/1.73m2 Glucose 112 60 - 115 mg/dL [facility] Calcium 9.0 8.4 - 10.2 mg/dL [facility] Bilirubin, Total 0.5 0.0 - 1.0 mg/dL [facility] Aspartate Amino Transferase 22 5 - 31 U/L [facility] Alanine Aminotransferase 20 0 - 31 U/L [facility] Total Protein 7.5 6.5 - 8.0 g/dL [facility] Albumin Level 4.1 3.5 - 5.0 g/dL [facility] Alkaline Phosphatase 66 39 - 117 U/L [facility] Blood Venous blood specimen / Unknown 12/11/2024 8:17 AM EDT 12/11/2024 11:19 AM EDT Lashae Payton MD LAB BLOOD ORDERABLES Final Result [facility] [address] [place] [phone] [phone] * (ABNORMAL) POCT HGB A1C (12/09/2024 10:55 AM EDT) Hemoglobin A1C 5.9(A) 4.0 - 5.7 % QC Media Lot # [id number] Lot# Expiration Date 3, Blood 12/09/2024 10:5 5 AM EDT Lashae Payton MD POINT OF CARE TEST EN TER/EDIT ORDERABLES Final Result * POCT Glucose (12/09/2024 10:54 AM EDT) Glucose Blood, POC 159 60 - 200 mg/dL [employer] Media Lot # [id number] Lot# Expiration Date ,379 Blood Capillary blood specimen / Unknown 12/09/2024 10:54 AM EDT Lashae Payton MD POINT OF CARE TEST EN TER/EDIT ORDERABLES Final Result * Hm Colonoscopy (04/05/2022 10:22 AM EDT) Colonoscopy Normal Normal Narrative Sally Bonds - 04/05/2022 10:22 AM EDT Repeat colonoscopy in 10 years for colorectal cancer screening see the external hospital admission note on 04/05/2022 Historical Provider HEALTH MAINTENANCE Edited Result - Final * Mammography Report 1 (04/05/2021 3:15 PM EDT) Anatomical Region Laterality Modality Breast Bilateral Mammography 04/05/2021 3:15 PM EDT Narrative 04/06/2021 12:32 PM EDT Refer to the Notes tab for result details [facility] Procedure: Mammography Report 1 Procedure Note ProviderFletcher MD - 08/26/2022 Refer to the Notes tab for result details [facility] Procedure: Mammography Report 1 us Lashae Payton MD IMG BI PROCEDURES Fin al Result * HPV DNA, HIGH RISK, CERVICAL (03/30/2020 3:54 PM EDT) HPV DNA, HIGH RISK, CERVICAL Not Detected NOT DETECTED [facility] Comment: Not Detected High Risk HPV types (16,18,31,33,35,39,45,51,52, 56,58,59,66,68) were not detected. Other HPV types which cause anogenital lesions may be present. The significance of the other types of HPV in malignant processes has not been established. Methodology: Real Time PCR 03/30/2020 3:54 PM EDT us Lashae Payton MD HISTORICAL/NON ORDERA BLE LABS Final Result [facility] [address] [place] [address], * THINPREP TIS PAP (03/30/2020 3:54 PM EDT) Clinical Information: SEE COMMENT [facility] Comment:None given COMMENT [facility] Comment: EXPLANATORY NOTE: The Pap is a screening test for cervical cancer. It is not a diagnostic test and is subject to false negative and false positive results. It is most reliable when a satisfactory sample, regularly obtained, is submitted with relevant clinical findings and history, and when the Pap result is evaluated along with historic and current clinical information. COMMENT: [facility] Comment: This Pap test has been evaluated with computer assisted technology. Animation Camera Operator: SEE COMMENT [facility] Comment: ED, CT(ASCP) CT screening location: [address] [address] Interpretation/Resu lt: [facility] Comment:Negative for intraep ithelial lesion or malignancy. LMP: [facility] Comment:NONE GIVEN Prev. BX: NONE GIVEN [facility] Prev. PAP: [facility] Comment:NONE GIVEN SOURCE: [facility] Comment:None given Statement Of Adequacy: [facility] Comment: Satisfactory for evaluation. Endocervical/transformation zone component absent. Partially obscuring inflammation 03/30/2020 3:54 PM EDT Lashae Payton MD LAB PATHOLOGY ORDERAB LES Final Result [facility] [address] [place] [address], from Last 3 Months or Most Recently Relevant to Health Maintenance Insurance [id number] OPTIONS (HMO D-SNP) [place] [id number] Care Teams School Laboratory Technician Relationship Specialty Start Date End Date Lashae Mcguire MD [address] [place] [address] PCP - General Family Medicine 09/30/18
--- OUTSIDE RECORDS SUMMARY | 2025-02-25 16:33 | XMS_ITS | Patient Health Record ---
Author Organization [facility] Address [address] [place] [phone] Care Team Providers Care Route Specialist Name Role Phone Dewayne Ware Unavailable [phone] Reason For Referral No Information Plan Of Treatment No Information
--- OUTSIDE RECORDS SUMMARY | 2025-02-25 16:33 | XMS_ITS | Encounter Summary ---
Author Organization [employer] Address [address] [place] [address] 7 [place] [address] Care Team Providers Care Oxygen System Tester Name Role Phone Lashae Mcguire MD Primary Care Provide r Reason for Visit * Reason Onset Date Comments Appointment Request 12/16/2023 Encounter Details Date Type Department Care Team ([facility] st Contact Info) Description 12/16/2023 Telephone [facility] MEDICINE [address] [place] [address] Lashae Mcguire MD [address] [place] [address] Appointment Request Social History Tobacco Use Types Packs/Day Years Used Date Smoking Tobacco: Never Passive Smoke Exposure: Never Smokeless Tobacco: Never Alcohol Use Standard Drinks/Week Comments Not Currently 0 (1 standard drink = 0.6 oz pur e alcohol) Depression Answer Date Recorded Patient Health Questionnaire-9 Score 14 12/25/2022 Housing Stability Answer Date Recorded What is your housing situation today? I have emily cabrales 03/18/[address] you li ve. Do you have problems with any of the following? None of the above 03/18/2023 Food Insecurity Answer Date Recorded Within the past 12 months, y ou worried that your food would run out before you got money to buy more: Never True 03/18/2023 Within the past 12 months,th e food you bought just didn't last and you didn't have enough money to get more: Never True Transportation Answer Date Recorded In the past 12 months, has l ack of transportation kept you from medical appts, meetings, work or from getting things needed for daily living? No 03/18/2023 Utilities Answer Date Recorded In the past 12 months, has t he electric, gas, oil or water company threatened to shut off services in your home? No 03/18/2023 Depression Answer Date Recorded Patient Health Questionnaire-2 Score 4 12/25/2022 Comments Unknown Sex and Gender Information Value Date Recorded Sex Assigned at Female 04/02/2022 10:16 AM EDT Legal Sex Female 10:16 AM EDT Gender Identity Female 04/02/2022 10:16 AM EDT Sexual Orientation Straight 04/02/2022 10 :16 AM EDT documented as of this encounter Miscellaneous Notes * Telephone Encounter - Annalise Aguilera - 12/16/2023 9:38 AM EDT Tc from pt requesting appt with PCP stated need a check on her sugar and blood pressure level. Pt denied any symptoms at the moment of the call. Please contact pt in faroese. documented in this encounter Plan of Treatment Upcoming Encounters Date Type Department Care Team (Late st Contact Info) Description 04/02/2025 1:00 PM EDT Office Visit [facility] OPTOMETRY [address] [place], [place] [phone] Cem, Lesli, OD [address] [place] [address] documented as of this encounter Visit Diagnoses Not on filedocumented in this encounter Additional Health Concerns Assessment Noted Time PHQ-9 Depression Total Score: 14 023 1:09 PM EDT documented as of this encounter Care Teams Oxygen System Tester Relationship Specialty Start Date End Date Lashae Mcguire MD [address] [place], [place] [phone] PCP - General Family Medicine 09/30/18 documented as of this encounter
--- OUTSIDE RECORDS SUMMARY | 2025-02-25 16:33 | XMS_ITS | Encounter Summary ---
Author Organization [employer] Address [address] [place] [address] 7 [place] [address] Care Team Providers Care Supervisor Force Adjustment Name Role Phone Lashae Mcguire MD Primary Care Provide r Reason for Visit * Reason Comments Med Refill Encounter Details Date Type Department Care Team (Late st Contact Info) Description 11/30/2024 Refill [facility] MEDICINE [address] [place] [address] Lashae Mcguire MD [address] [place], [place] [phone] Primary hypertension Social History Tobacco Use Types Packs/Day Years [...] Description 04/02/2025 1:00 PM EDT Office Visit [facility] OPTOMETRY [address] [place] [address] Cem, Lesli, OD [address] [place] [address] documented as of this encounter Visit Diagnoses Diagnosis Primary hypertension Unspecified essential hypertension documented in this encounter Additional Health Concerns Assessment Noted Time PHQ-9 Depression Total Score: 0 06/10/19 25 12:05 PM EST documented as of this encounter Care Teams Supervisor Force Adjustment Relationship Specialty Start Date End Date Lashae Mcguire MD [address] [place] [address] PCP - General Family Medicine 09/30/18 documented as of this encounter
--- OUTSIDE RECORDS SUMMARY | 2025-02-25 16:33 | XMS_ITS | Encounter Summary ---
Author Organization [email or web address] Address [address] [place] [address] 7 [place] [address] Care Team Providers Care Batter Mixer Name Role Phone Lashae Mcguire MD Primary Care Provide r Reason for Visit * Reason Comments Med Refill Encounter Details Date Type Department Care Team (Late st Contact Info) Description 07/10/2024 Refill [facility] MEDICINE [address] [place] [address] Lashae Mcguire MD [address] [place], [place] [phone] Type 2 diabetes mellitus with hyperlipidemia ([facility]/HCC) ([facility]) Social History Tobacco Use Types Packs/Day Years [...] Description 04/02/2025 1:00 PM EDT Office Visit [facility] OPTOMETRY [address] [place] [address] Lesli Priest, OD [address] [place] [address] documented as of this encounter Visit Diagnoses Diagnosis Type 2 diabetes mellitus with hyperlipidemia (CMS/HCC) (CMS/HCC) documented in this encounter Additional Health Concerns Assessment Noted Time PHQ-9 Depression Total Score: 0 06/10/19 25 12:05 PM EST documented as of this encounter Care Teams Batter Mixer Relationship Specialty Start Date End Date Lashae Mcguire MD [address] [place], [place] [phone] PCP - General Family Medicine 09/30/18 documented as of this encounter
--- OUTSIDE RECORDS SUMMARY | 2025-02-25 16:33 | XMS_ITS | Encounter Summary ---
Author Organization [employer] Address [address] [place] [address] [address] [place] [address] Care Team Providers Care Director Of Perioperative Services Name Role Phone Lashae Mcguire MD Primary Care Provide r Reason for Visit * Reason Comments Med Refill Encounter Details Date Type Department Care Team (Late st Contact Info) Description 02/25/2025 Refill [facility] MEDICINE [address] [place] [address] Lashae Mcguire MD [address] [place], [place] [phone] Type 2 diabetes mellitus with hyperlipidemia ([facility]/HCC) ([facility]) Social History Tobacco Use Types Packs/Day Years [...] Description 04/02/2025 1:00 PM EDT Office Visit [facility] OPTOMETRY [address] [place] [address] Cem, Lesli, OD [address] [place] [address] documented as of this encounter Visit Diagnoses Diagnosis Type 2 diabetes mellitus with hyperlipidemia (CMS/HCC) (CMS/HCC) documented in this encounter Additional Health Concerns Assessment Noted Time PHQ-9 Depression Total Score: 12 025 10:53 AM EDT documented as of this encounter Care Teams Director Of Perioperative Services Relationship Specialty Start Date End Date Lashae Mcguire MD [address] [place] [address] PCP - General Family Medicine 09/30/18 documented as of this encounter
--- OUTSIDE RECORDS SUMMARY | 2025-02-25 16:33 | XMS_ITS | Encounter Summary ---
Author Organization [employer] Address [address] [place] [address] Care Team Providers Care Store Protection Specialist Name Role Phone Lashae Mcguire MD Primary Care Provide r Reason for Visit * Reason Onset Date Comments Appointment Request 11/20/2022 Encounter Details Date Type Department Care Team ([facility] st Contact Info) Description 11/20/2022 Telephone [facility] MEDICINE [address] [place] [address] Lashae Mcguire MD [address] [place] [address] Appointment Request Social History Tobacco Use Types Packs/Day Years Used Date Smoking Tobacco: Never Smokeless Tobacco: Never Alcohol Use Standard Drinks/Week Comments Not Currently 0 (1 standard drink = 0.6 oz pur e alcohol) Comments Unknown Sex and Gender Information Value Date Recorded Sex Assigned at Female 04/02/2022 10:16 AM EDT Legal Sex Female 10:16 AM EDT Gender Identity Female 04/02/2022 10:16 AM EDT Sexual Orientation Straight 04/02/2022 10 :16 AM EDT documented as of this encounter Miscellaneous Notes * Telephone Encounter - Raven Washington - 11/20/2022 10:24 AM EDT Tc from pt requesting appt with provider for some labs. Please contact pt at [phone] Icelandic Speaker documented in this encounter Plan of Treatment Upcoming Encounters Date Type Department Care Team (Late st Contact Info) Description 04/02/2025 1:00 PM EDT Office Visit [facility] OPTOMETRY [address] [place], [place] [phone] Lesli Priest, OD [address] [place] [address] documented as of this encounter Visit Diagnoses Not on filedocumented in this encounter Care Teams Store Protection Specialist Relationship Specialty Start Date End Date Lashae Mcguire MD [address] [place], [place] [phone] PCP - General Family Medicine 09/30/18 documented as of this encounter
--- OUTSIDE RECORDS SUMMARY | 2025-02-25 16:33 | XMS_ITS | Encounter Summary ---
Author Organization [employer] Address [address] [place] [address] 7 [place] [address] Care Team Providers Care Cloth Tester Name Role Phone Lashae Mcguire MD Primary Care Provide r Reason for Visit * Reason Comments Med Refill Encounter Details Date Type Department Care Team (Late st Contact Info) Description 07/02/2024 Refill [facility] MEDICINE [address] [place] [address] Lashae Mcguire MD [address] [place], [place] [phone] Primary hypertension Social History Tobacco Use Types [...] encounter Miscellaneous Notes * Telephone Encounter - Lou Sena - 07/03/2024 9:27 AM EST TC from pt requesting medication refill. Medications needing refill : amLODIPine (Norvasc) 5 MG tablet Requesting early refill due to pt traveling to out of state Jul 28 To be sent to: [id number] [id number] [facility] documented in this encounter Plan of Treatment Upcoming Encounters Date Type Department Care Team (Late st Contact Info) Description 04/02/2025 1:00 PM EDT Office Visit [facility] OPTOMETRY [address] [place] [address] Cem, Lesli, OD [address] [place] [address] documented as of this encounter Visit Diagnoses Diagnosis Primary hypertension Unspecified essential hypertension documented in this encounter Additional Health Concerns Assessment Noted Time PHQ-9 Depression Total Score: 0 06/10/19 25 12:05 PM EST documented as of this encounter Care Teams Cloth Tester Relationship Specialty Start Date End Date Lashae Mcguire MD [address] [place] [address] PCP - General Family Medicine 09/30/18 documented as of this encounter
--- OUTSIDE RECORDS SUMMARY | 2025-02-25 16:33 | XMS_ITS | Encounter Summary ---
Author Organization [employer] Address [address] [place] [address] [address] [place] [address] Care Team Providers Care President/[employer] Name Role Phone Lashae Mcguire MD Primary Care Provide r Reason for Visit * Reason Comments Med Refill Encounter Details Date Type Department Care Team (Late st Contact Info) Description 07/24/2024 Refill [facility] MEDICINE [address] [place] [address] Lashae Mcguire MD [address] [place], [place] [phone] Type 2 diabetes mellitus with hyperlipidemia ([facility]/HCC) ([facility]) Social History Tobacco Use Types Packs/Day [...] Description 04/02/2025 1:00 PM EDT Office Visit [facility] OPTOMETRY [address] [place] [address] Lesli Priest, OD [address] [place] [address] documented as of this encounter Visit Diagnoses Diagnosis Type 2 diabetes mellitus with hyperlipidemia (CMS/HCC) (CMS/HCC) documented in this encounter Additional Health Concerns Assessment Noted Time PHQ-9 Depression Total Score: 0 06/10/19 25 12:05 PM EST documented as of this encounter Care Teams President/[employer] Relationship Specialty Start Date End Date Lashae Mcguire MD [address] [place], [place] [phone] PCP - General Family Medicine 09/30/18 documented as of this encounter
--- OUTSIDE RECORDS SUMMARY | 2025-02-25 16:33 | XMS_ITS | Encounter Summary ---
Author Organization [employer] Address [address] [place] [address] [address] [place] [address] Care Team Providers Care Ground Wood Supervisor Name Role Phone Lashea Mcguire MD Primary Care Provide r Reason for Visit * Reason Comments Med Refill Encounter Details Date Type Department Care Team (Late st Contact Info) Description 02/24/2025 Refill [facility] [address] [place] [address] Lashae Mcguire MD [address] [place], [place] [id number] Type 2 diabetes mellitus with hyperlipidemia ([facility]/HCC) ([facility]) Social History Tobacco Use Types Packs/Day Years [...] Description 04/02/2025 1:00 PM EDT Office Visit [facility] [address] [place] [address] Cem, Lesli, OD [address] [place] [address] documented as of this encounter Visit Diagnoses Diagnosis Type 2 diabetes mellitus with hyperlipidemia (CMS/HCC) (CMS/HCC) documented in this encounter Additional Health Concerns Assessment Noted Time PHQ-9 Depression Total Score: 12 025 10:53 AM EDT documented as of this encounter Care Teams Ground Wood Supervisor Relationship Specialty Start Date End Date Lashae Mcguire MD [address] [place] [address] PCP - General Family Medicine 09/30/18 documented as of this encounter
== END 2025-02-25 12:54 | disposition home or self-care (01) ==
LOC: HO.HGI 11:42
PROVIDERS: PCP Internal Medicine; Visit Provider Nurse Practitioner
DX: K59.00 Constipation, unspecified (principal); K21.9 Gastro-esophageal reflux disease without esophagitis
CPT/HCPCS: 99213

== ENCOUNTER → 2025-02-25 11:41 | Outpatient (BNVA) | payer OTHER, SELFPAY | PROVIDERS: PCP Internal Medicine; Visit Provider Nurse Practitioner | DX: K21.9 Gastro-esophageal reflux disease without esophagitis (principal); K58.9 Irritable bowel syndrome, unspecified; K59.00 Constipation, unspecified | CPT/HCPCS: 99212 ==